=== PATIENT | female | born 1960 | race American Indian/Alaskan Native ===

== ENCOUNTER 2019-08-03 11:36 | Inpatient (IN) | payer MEDICARE ==
[2019-08-03] MEDS ORDERED: dilTIAZem 25 MG/5 ML INJ ONE (12:11)
[2019-08-03] MEDS ORDERED: SODIUM CHLORIDE 0.9% 1000 ML 1,000 ML IV ONE (12:12)
[2019-08-03] MEDS ORDERED: dilTIAZem 25 MG/5 ML INJ IV ONE (12:12)
[2019-08-03 12:18] LABS: Basophils # (Auto) 0.3 K/mm3 (0.0-0.1); Eosinophils % (Auto) 0.2 % (0.0-4.3); Hematocrit 43.6 % (30.3-42.9); Hemoglobin 14.6 gm/dl (10.1-14.3); Lymphocytes # (Auto) 2.2 K/mm3 (1.2-5.4); Lymphocytes % (Auto) 17.4 % (13.4-35.0); Mean Corpuscular HGB Conc 33 % (30-34); Mean Corpuscular Volume 93 fl (79-97); Monocytes # (Auto) 0.4 K/mm3 (0.0-0.8); Monocytes % (Auto) 3.6 % (0.0-7.3); Platelet Count 236 K/mm3 (140-440); Red Blood Count 4.71 M/mm3 (3.65-5.03); Red Cell Distribution Width 13.4 % (13.2-15.2)
--- NOTE | 2019-08-03 12:21 | Cat Scan Report ---
CT HEAD WITHOUT CONTRAST INDICATION : neuro deficits <6hrs or sx present upon awakening. TECHNIQUE: Axial imaging performed from the skull apex through the skull base without the use of con trast. All CT scans at this location are performed using CT dose reduction for ALARA by means of aut omated exposure control. COMPARISON: None FINDINGS: Parenchyma: A 3 cm left frontal lobe hypodensity with sulcal effacement. No other abnormal hypodensi ty. No hemorrhage. Ventricles: Ventricles are normal in size and appear symmetric. Soft tissues: Soft tissues including the orbits appear normal. Bones: No acute osseous abnormality. Sinuses: Sinuses and mastoid air cells are clear. IMPRESSION: Left frontal lobe hypodensity suspicious for an acute nonhemorrhagic infarct. CRITICAL RESULT: Time of Discovery (CONCESSION SUPERVISOR/CDT): 12:05 Time of Communication (CONCESSION SUPERVISOR/CDT): 12:10 Licensed Practitioner Receiving Report: Dr. Zayas in the Emergency Department Read Back Performed: Yes. Signer Name: Delgado Sigala MD Signed: 08/03/2019 12:17 PM Workstation Name: [id number]
[2019-08-03] MEDS: dilTIAZem/D5W 100 MG/100 ML BAG IV SCH (12:29)
[2019-08-03 12:35] LABS: INR 1.02 (0.87-1.13)
[2019-08-03 12:36] LABS: BUN/Creatinine Ratio 9; Blood Urea Nitrogen 7 mg/dL (7-17); Calcium 9.4 mg/dL (8.4-10.2); Hemolysis Index 14; Partial Thromboplastin Time 29.7 Sec. (24.2-36.6)
--- NOTE | 2019-08-03 13:16 | Emergency Department Report ---
ED Neuro Deficit HPI - General Chief Complaint: Neuro Symptoms/Deficit Stated Complaint: NEURO SX Time Seen by Provider: 08/03/19 12:10 Source: patient Mode of arrival: Ambulatory Limitations: No Limitations - History of Present Illness Initial Comments: C1 year old female with no prior history of stroke. Her son spoke to her at 8:00 this a.m. and noted that she was confused and not communicating appropriately. Last night the son stated that the patient was not feeling well. She was able to communicate appropriately according to the daughter at about 5 AM. Her last known well time is somewhat uncertain but at best between 5 AM and 8 AM. Patient has a history of atrial fibrillation. She takes "homeopathic medicine". She does not take a blood thinner. She does not take aspirin. She takes an unknown medicine for high blood pressure. -: unknown Location: other (a fascia) Presenting Symptoms: Present: Weak/Paralyzed One Side History of same: No Place: home Severity: moderate, severe On Anticoagulants: No Context: other (indeterminate) Associated Symptoms: other ("didn't feel well last night") - Related Data Allergies/Adverse Reactions: Allergies Allergy/AdvReac Type Severity Reaction Status Date / Time No Known Allergies Allergy Unverified 08/03/19 11:42 ED Review of Systems ROS: Stated complaint: NEURO SX Other details as noted in HPI Comment: Unobtainable due to pts medical conditions ED Past Medical Hx - Past Medical History Previous Medical History?: Yes Hx Hypertension: Yes Additional medical history: herniated disk. heart murmur. Atrial fibrillation - Surgical History Past Surgical History?: Yes - Social History Smoking Status: Never Smoker Substance Use Type: None ED Neuro Physical Exam - General Limitations: Other (globally aphasia) General appearance: alert, in no apparent distress Suspected Stroke: Yes - Head Head exam: Present: atraumatic, normocephalic - Eye Eye exam: Present: normal appearance. Absent: scleral icterus - ENT ENT exam: Present: mucous membranes moist - Neck Neck exam: Present: normal inspection. Absent: tenderness, meningismus - Respiratory Respiratory exam: Present: normal lung sounds bilaterally. Absent: respiratory distress - Cardiovascular Cardiovascular Exam: Present: tachycardia, irregular rhythm. Absent: systolic murmur, diastolic murmur, rubs, gallop - GI/Abdominal GI/Abdominal exam: Present: soft, normal bowel sounds. Absent: distended, tenderness, guarding, rebound, rigid - Extremities Exam Extremities exam: Present: normal inspection - Back Exam Back exam: Present: normal inspection - Neurological Exam Neurological exam: Present: alert, oriented X3, CN II-XII intact (as testable), other (global aphasia). Absent: motor sensory deficit (no drift) - NIHSS Assessment Interval: Baseline 1a. Level of Consciousness: alert/keenly responsive 1b. LOC Questions: answers no questions correctly 1c. LOC Commands: performs no tasks correctly 2. Best Gaze: normal 3. Visual: no visual loss (as testable) 4. Facial Palsy: normal symmetrical movement 5b. Motor Arm Right: no drift 5a. Motor Arm Left: no drift 6a. Motor Leg Left: no drift 6b. Motor Leg Right: no drift 7. Limb Ataxia: absent 8. Sensory: normal 9. Best Language: severe aphasia 10. Dysarthria: normal 11. Extinction/Inattention: no abnormality Total Score: 6 Stroke Severity: Moderate Stroke - Psychiatric Psychiatric exam: Present: normal affect, normal mood - Skin Skin exam: Present: warm, dry, intact, normal color. Absent: rash ED Course Vital Signs 08/03/19 08/03/19 08/03/19 11:56 12:18 12:29 Temperature 98.8 F Pulse Rate 123 H 121 H 107 H Respiratory 27 H Rate Blood Pressure 122/71 223/126 Blood Pressure 122/71 [Right] O2 Sat by Pulse 99 Oximetry - Reevaluation(s) Reevaluation #1: Radiologist found a subacute stroke in the left frontal lobe to 3 cm hypodensity. I spoke with the Tele-neurologist. They wanted to get an emergency angiogram of the head and neck. This was ordered. Patient was admitted by Dr. Oquendo. Patient has atrial fibrillation with rapid ventricular response. I gave her a bolus of saline because her blood pressure was somewhat low and I was concerned about the possible effects of diltiazem on the blood pressure. The patient was given a very gentle dose of diltiazem and was placed on a drip. 08/03/19 13:20 - Lab Data Result diagrams: 08/03/19 12:05 08/03/19 12:05 Lab Results 08/03/19 08/03/19 08/03/19 Range/Units 11:50 12:05 12:05 WBC 12.4 H (4.5-11.0) K/mm3 RBC 4.71 (3.65-5.03) M/mm3 Hgb 14.6 H (10.1-14.3) gm/dl Hct 43.6 H (30.3-42.9) % MCV 93 (79-97) fl MCH 31 (28-32) pg MCHC 33 (30-34) % RDW 13.4 (13.2-15.2) % Plt Count 236 (140-440) K/mm3 Lymph % (Auto) 17.4 (13.4-35.0) % [place] % (Auto) 3.6 (0.0-7.3) % Eos % (Auto) 0.2 (0.0-4.3) % Baso % (Auto) 2.0 H (0.0-1.8) % Lymph # 2.2 (1.2-5.4) K/mm3 [place] # 0.4 (0.0-0.8) K/mm3 Eos # 0.0 (0.0-0.4) K/mm3 Baso # 0.3 H (0.0-0.1) K/mm3 Seg Neutrophils % 76.8 H (40.0-70.0) % Seg Neutrophils # 9.5 H (1.8-7.7) K/mm3 PT 13.5 (12.2-14.9) Sec. INR 1.02 (0.87-1.13) APTT 29.7 (24.2-36.6) Sec. Thrombin Time 18.0 (15.1-19.6) Sec. Sodium (137-145) mmol/L Potassium (3.6-5.0) mmol/L Chloride (98-107) mmol/L Carbon Dioxide (22-30) mmol/L Anion Gap mmol/L BUN (7-17) mg/dL Creatinine (0.7-1.2) mg/dL Estimated GFR ml/min BUN/Creatinine Ratio % Glucose (65-100) mg/dL POC Glucose 85 (70-105) Calcium (8.4-10.2) mg/dL Troponin T (0.00-0.029) ng/mL 08/03/19 Range/Units 12:05 WBC (4.5-11.0) K/mm3 RBC (3.65-5.03) M/mm3 Hgb (10.1-14.3) gm/dl Hct (30.3-42.9) % MCV (79-97) fl MCH (28-32) pg MCHC (30-34) % RDW (13.2-15.2) % Plt Count (140-440) K/mm3 Lymph % (Auto) (13.4-35.0) % [place] % (Auto) (0.0-7.3) % Eos % (Auto) (0.0-4.3) % Baso % (Auto) (0.0-1.8) % Lymph # (1.2-5.4) K/mm3 [place] # (0.0-0.8) K/mm3 Eos # (0.0-0.4) K/mm3 Baso # (0.0-0.1) K/mm3 Seg Neutrophils % (40.0-70.0) % Seg Neutrophils # (1.8-7.7) K/mm3 PT (12.2-14.9) Sec. INR (0.87-1.13) APTT (24.2-36.6) Sec. Thrombin Time (15.1-19.6) Sec. Sodium 141 (137-145) mmol/L Potassium 3.6 (3.6-5.0) mmol/L Chloride 104.1 (98-107) mmol/L Carbon Dioxide 17 L (22-30) mmol/L Anion Gap 24 mmol/L BUN 7 (7-17) mg/dL Creatinine 0.8 (0.7-1.2) mg/dL Estimated GFR > 60 ml/min BUN/Creatinine Ratio 9 % Glucose 92 (65-100) mg/dL POC Glucose (70-105) Calcium 9.4 (8.4-10.2) mg/dL Troponin T < 0.010 (0.00-0.029) ng/mL - EKG Data -: EKG Interpreted by Me Rate: tachycardia (fibrillation with rapid ventricular response) - Radiology Data Radiology results: report reviewed (discussed with radiologist) Critical Care Time: Yes Critical care time in (mins) excluding proc time.: 45 Critical care attestation.: If time is entered above; I have spent that time in minutes in the direct care of this critically ill patient, excluding procedure time. ED Disposition Clinical Impression: Acute CVA (cerebrovascular accident), Atrial fibrillation with rapid ventricular response Disposition: DC-09 OP ADMIT IP TO THIS HOSP Is pt being admited?: Yes Does the pt Need Aspirin: Yes Condition: Stable Time of Disposition: 13:22
--- NOTE | 2019-08-03 13:24 | Emergency Department Report ---
ED Neuro Deficit HPI - General Chief Complaint: Neuro Symptoms/Deficit Stated Complaint: NEURO SX Time Seen by Provider: 08/03/19 12:10 Source: patient Mode of arrival: Ambulatory Limitations: Other (globally aphasia) - History of Present Illness Initial Comments: [facility] Date of Service: 08/03/2019 11:42:02 Impression: RO Acute Ischemic Stroke Comments: 59 year old female with expressive aphasia which she noticed since this morning. CT shows left frontal stroke. Stroke may be due to cardioembolic stroke. Mechanism of Stroke: Possible Thromboembolic Possible Cardioembolic Metrics: Last Known Well: 08/02/2019 21:00:00 [employer] Notification Time: 08/03/2019 11:41:10 Arrival Time: 08/03/2019 11:36:00 Stamp Time: 08/03/2019 11:42:02 Time First Login Attempt: 08/03/2019 11:47:00 Video Start Time: 08/03/2019 11:47:00 Symptoms: Expressive aphasia NIHSS Start Assessment Time: 08/03/2019 12:00:00 Patient is not a candidate for tPA. Patient was not deemed candidate for tPA thrombolytics because of Last Well Known Above 4.5 Hours. Video End Time: 08/03/2019 12:05:00 CT head was reviewed. Advanced imaging is to be reviewed by ED physician and KATE. Advanced imaging CTA head and neck obtained. Radiologist was not called back for review of advanced imaging because Symptoms not consistent with LVO ER Physician notified of the decision on thrombolytics management on 08/03/2019 12:40:00 Our recommendations are outlined below. Recommendations: Activate Stroke Protocol Admission/Order Set Stroke/Telemetry Floor Neuro Checks Bedside Swallow Eval DVT Prophylaxis IV Fluids, Normal Saline Head of Bed Below 30 Degrees Euglycemia and Avoid Hyperthermia (PRN Acetaminophen) Antiplatelet Therapy Recommended Recommended Scan: MRI Head with and Without Contrast Lipid Panel to Be Obtained, if Not Done in the Last Three Months Therapies: Physical Therapy, Occupational Therapy, Speech Therapy Assessment When Applicable Dysphaghia Screen: Swallow Evaluation, Bedside NPO Until Swallow Evaluation DVT prophylaxis: Choice of Primary Team Disposition: Follow up with Teleneurology Follow up Sign Out: Discussed with Emergency Department Provider History of Present Illness: Patient is a 59 year old Female. Patient was brought by private transportation with symptoms of Expressive aphasia 59 year old female with a history of atrial fibrillation not on anticoagulation who presents to the hospital because of expressive aphasia which she noted when she woke up this morning. On arrival patient was non-verbal except for "yes/no" appropriately. Patient did not have any other deficit. CT head was reviewed. Examination: 1A: Level of Consciousness - Alert; keenly responsive + 0 1B: Ask Month and Age - aphasic - +2 1C: Blink Eyes & Squeeze Hands - Performs Both Tasks + 0 2: Test Horizontal Extraocular Movements - Normal + 0 3: Test Visual [place] - No Visual Loss + 0 4: Test Facial Palsy (Use Grimace if Obtunded) - Normal symmetry + 0 5A: Test Left Arm Motor Drift - No Drift for 10 Seconds + 0 5B: Test Right Arm Motor Drift - No Drift for 10 Seconds + 0 6A: Test Left Leg Motor Drift - No Drift for 5 Seconds + 0 6B: Test Right Leg Motor Drift - No Drift for 5 Seconds + 0 7: Test Limb Ataxia (FNF/Heel-Marshall) - No Ataxia + 0 8: Test Sensation - Normal; No sensory loss + 0 9: Test Language/Aphasia - Severe Aphasia: Fragmentary Expression, Inference Needed, Cannot Identify Materials + 2 10: Test Dysarthria - Normal + 0 11: Test Extinction/Inattention - No abnormality + 0 NIHSS Score: 2 Patient was informed the Neurology Consult would happen via TeleHealth consult by way of interactive audio and video telecommunications and consented to receiving care in this manner. Due to the immediate potential for life-threatening deterioration due to underlying acute neurologic illness, I spent 35 minutes providing critical care. This time includes time for face to face visit via telemedicine, review of medical records, imaging studies and discussion of findings with providers, the patient and/or family. Dr Norma Patel [facility] Case [id number] Location: other (a fascia) History of same: No Place: home Severity: moderate, severe On Anticoagulants: No - Related Data Allergies/Adverse Reactions: Allergies Allergy/AdvReac Type Severity Reaction Status Date / Time NSAIDS (Non-Steroidal Allergy Unknown Verified 08/03/19 13:23 Anti-Inflamma ED Review of Systems ROS: Stated complaint: NEURO SX Other details as noted in HPI ED Past Medical Hx - Past Medical History Previous Medical History?: Yes Hx Hypertension: Yes Additional medical history: herniated disk. heart murmur. Atrial fibrillation - Surgical History Past Surgical History?: Yes - Social History Smoking Status: Never Smoker Substance Use Type: None ED Neuro Physical Exam - General Limitations: Other (globally aphasia) General appearance: alert, in no apparent distress Suspected Stroke: Yes - NIHSS Assessment Interval: Baseline 1a. Level of Consciousness: alert/keenly responsive 1b. LOC Questions: aphasic 1c. LOC Commands: performs tasks correctly 2. Best Gaze: normal 3. Visual: no visual loss 4. Facial Palsy: normal symmetrical movement 5b. Motor Arm Right: no drift 5a. Motor Arm Left: no drift 6a. Motor Leg Left: no drift 6b. Motor Leg Right: no drift 7. Limb Ataxia: absent 8. Sensory: normal 9. Best Language: severe aphasia 10. Dysarthria: normal 11. Extinction/Inattention: no abnormality Total Score: 4 Stroke Severity: Minor Stroke ED Course Vital Signs 08/03/19 08/03/19 08/03/19 11:56 12:18 12:29 Temperature 98.8 F Pulse Rate 123 H 121 H 107 H Respiratory 27 H Rate Blood Pressure 122/71 223/126 Blood Pressure 122/71 [Right] O2 Sat by Pulse 99 Oximetry - Lab Data Result diagrams: 08/03/19 12:05 08/03/19 12:05 Lab Results 08/03/19 08/03/19 08/03/19 Range/Units 11:50 12:05 12:05 WBC 12.4 H (4.5-11.0) K/mm3 RBC 4.71 (3.65-5.03) M/mm3 Hgb 14.6 H (10.1-14.3) gm/dl Hct 43.6 H (30.3-42.9) % MCV 93 (79-97) fl MCH 31 (28-32) pg MCHC 33 (30-34) % RDW 13.4 (13.2-15.2) % Plt Count 236 (140-440) K/mm3 Lymph % (Auto) 17.4 (13.4-35.0) % [place] % (Auto) 3.6 (0.0-7.3) % Eos % (Auto) 0.2 (0.0-4.3) % Baso % (Auto) 2.0 H (0.0-1.8) % Lymph # 2.2 (1.2-5.4) K/mm3 [place] # 0.4 (0.0-0.8) K/mm3 Eos # 0.0 (0.0-0.4) K/mm3 Baso # 0.3 H (0.0-0.1) K/mm3 Seg Neutrophils % 76.8 H (40.0-70.0) % Seg Neutrophils # 9.5 H (1.8-7.7) K/mm3 PT 13.5 (12.2-14.9) Sec. INR 1.02 (0.87-1.13) APTT 29.7 (24.2-36.6) Sec. Thrombin Time 18.0 (15.1-19.6) Sec. Sodium (137-145) mmol/L Potassium (3.6-5.0) mmol/L Chloride (98-107) mmol/L Carbon Dioxide (22-30) mmol/L Anion Gap mmol/L BUN (7-17) mg/dL Creatinine (0.7-1.2) mg/dL Estimated GFR ml/min BUN/Creatinine Ratio % Glucose (65-100) mg/dL POC Glucose 85 (70-105) Calcium (8.4-10.2) mg/dL Troponin T (0.00-0.029) ng/mL 08/03/19 Range/Units 12:05 WBC (4.5-11.0) K/mm3 RBC (3.65-5.03) M/mm3 Hgb (10.1-14.3) gm/dl Hct (30.3-42.9) % MCV (79-97) fl MCH (28-32) pg MCHC (30-34) % RDW (13.2-15.2) % Plt Count (140-440) K/mm3 Lymph % (Auto) (13.4-35.0) % [place] % (Auto) (0.0-7.3) % Eos % (Auto) (0.0-4.3) % Baso % (Auto) (0.0-1.8) % Lymph # (1.2-5.4) K/mm3 [place] # (0.0-0.8) K/mm3 Eos # (0.0-0.4) K/mm3 Baso # (0.0-0.1) K/mm3 Seg Neutrophils % (40.0-70.0) % Seg Neutrophils # (1.8-7.7) K/mm3 PT (12.2-14.9) Sec. INR (0.87-1.13) APTT (24.2-36.6) Sec. Thrombin Time (15.1-19.6) Sec. Sodium 141 (137-145) mmol/L Potassium 3.6 (3.6-5.0) mmol/L Chloride 104.1 (98-107) mmol/L Carbon Dioxide 17 L (22-30) mmol/L Anion Gap 24 mmol/L BUN 7 (7-17) mg/dL Creatinine 0.8 (0.7-1.2) mg/dL Estimated GFR > 60 ml/min BUN/Creatinine Ratio 9 % Glucose 92 (65-100) mg/dL POC Glucose (70-105) Calcium 9.4 (8.4-10.2) mg/dL Troponin T < 0.010 (0.00-0.029) ng/mL Critical care attestation.: If time is entered above; I have spent that time in minutes in the direct care of this critically ill patient, excluding procedure time. ED Disposition Clinical Impression: Stroke Disposition: DC-09 OP ADMIT IP TO THIS HOSP Is pt being admited?: Yes Condition: Stable
[2019-08-03] MEDS ORDERED: ASPIRIN 325 MG TAB PO ONE (13:26)
--- NOTE | 2019-08-03 13:37 | History and Physical Report ---
History of Present Illness Chief complaint: She is confused, and is talking strange History of present illness: 59 YO Female with HTN, LDD, Atrial Fib not currently taking Therapeutic Anticoagulation presents to ED for evaluation. PT is confused with dysarthria at time of my evaluation and is unable to provide detailed history. Pt history provided by son who is at bedside during exam and interview. As per son, the p atient was in her usual state of health around bedtime at 2130hrs hrs. Pt son reports talking to the patient on the telephone around 0800hrs and the patient was confused and "Not making any sense". Pt was subsequently transported to [facility] via private vehicle. Pt seen and evaluated in ED and found to have neurologic deficit. A code stroke was called. Teleneurology consulted. Pt deemed not a candidate for TPA. Pt was also found to have Atrial Fib with RVR and was initiated on Cardizem drip in ED. Pt also found to have Acidosis, and Hypertensive Urgency. Pt admitted to IMCU for medical stabilization due to high risk of decompensation. Cardiology team consulted in ED, Neurology team consulted. Advanced Care planning conducted in ED. Pt family at bedside and acknowledge understanding and agreement with care plan. No prior admission for review. All medication listed at time of admission was reconciled. P Past History Past Medical History: hypertension Past Surgical History: Other (Lumbar surgery) Social history: single Family history: hypertension Medications and Allergies Allergies Allergy/AdvReac Type Severity Reaction Status Date / Time NSAIDS (Non-Steroidal Allergy Unknown Verified 08/03/19 13:23 Anti-Inflamma Home Medications Medication Instructions Recorded Confirmed Last Taken Type Metoprolol Succinate 100 mg PO BID 08/03/19 08/03/19 Unknown History Active Meds: Active Medications Diltiazem HCl (Cardizem/D5w 100mg/100ml) 100 mg in 100 mls @ 5 mls/hr IV TITR NAIN; Protocol Last Admin: 08/03/19 12:29 Dose: 5 mg/hr, 5 mls/hr Documented by: Review of Systems ROS unobtainable: due to mental status Exam - Constitutional Vitals: Temp Pulse Resp BP Pulse Ox 98.8 F 112 H 31 H 241/127 99 08/03/19 11:56 08/03/19 13:15 08/03/19 13:15 08/03/19 13:15 08/03/19 13:15 General appearance: Present: mild distress - EENT Eyes: Present: PERRL ENT: hearing intact, clear oral mucosa - Neck Neck: Present: supple, normal ROM - Respiratory Respiratory effort: normal Respiratory: bilateral: CTA - Cardiovascular Rhythm: other (tachycardia) Heart Sounds: Present: S1 & S2. Absent: rub, click - Extremities Extremities: pulses symmetrical, No edema Peripheral Pulses: within normal limits - Abdominal General gastrointestinal: Present: soft, non-tender, non-distended, normal bowel sounds Female genitourinary: Present: normal - Integumentary Integumentary: Present: clear, warm, dry - Musculoskeletal Musculoskeletal: generalized weakness - Psychiatric Psychiatric: no appropriate mood/affect, no intact judgment & insight, no memory intact - Neurologic Neurologic: no CNII-XII intact, focal deficits, moves all extremities, no gait normal Results - Labs CBC & Chem 7: 08/03/19 12:05 08/03/19 12:05 Labs: Abnormal lab results 08/03/19 08/03/19 Range/Units 12:05 12:05 WBC 12.4 H (4.5-11.0) K/mm3 Hgb 14.6 H (10.1-14.3) gm/dl Hct 43.6 H (30.3-42.9) % Baso % (Auto) 2.0 H (0.0-1.8) % Baso # 0.3 H (0.0-0.1) K/mm3 Seg Neutrophils % 76.8 H (40.0-70.0) % Seg Neutrophils # 9.5 H (1.8-7.7) K/mm3 Carbon Dioxide 17 L (22-30) mmol/L Assessment and Plan - Patient Problems (1) CVA (cerebral vascular accident) Current Visit: Yes Status: Acute Qualifiers: Laterality of affected vessel: unspecified Plan to address problem: CVA Protocol: Neurology consulted, CT Head, neuro check, lipid panel, PT/OT/Speech therapy, antiplatelet therapy, carotid doppler, echo to evaluate for thrombus, (2) Atrial fibrillation Current Visit: Yes Status: Acute Qualifiers: Atrial fibrillation type: unspecified Qualified Code(s): I48.91 - Unspecified atrial fibrillation Plan to address problem: Cardizem drip, transition to oral cardizem with sustained rate below 100, remote telemetry, cardiology consulted. (3) Hypertensive urgency, malignant Current Visit: Yes Status: Acute Plan to address problem: Monitor bp q shift, hydralazine prn, permissive hypertension overnight. (4) Acidosis Current Visit: Yes Status: Acute Plan to address problem: IVF resuscitation therapy, bmp, repeat bmp in am. (5) DVT prophylaxis Current Visit: Yes Status: Acute Plan to address problem: SCD to BLE while in bed, supportive care.
[2019-08-03] MEDS ORDERED: MAGNESIUM HYDROXIDE (MOM) ORAL LIQD UDC PO PRN (13:42)
[2019-08-03] MEDS ORDERED: ONDANSETRON 4 MG/2 ML INJ IV PRN (13:42)
[2019-08-03] MEDS ORDERED: ACETAMINOPHEN 325 MG TAB PO PRN (13:42)
[2019-08-03] MEDS ORDERED: METOCLOPRAMIDE 10 MG TAB PO PRN (13:42)
[2019-08-03] MEDS ORDERED: PROMETHAZINE 25 MG RECT SUPP PR PRN (13:42)
[2019-08-03] MEDS: hydrALAZINE 20 MG/1 ML INJ IV PRN ×2 (14:02→21:16)
--- NOTE | 2019-08-03 14:56 | Consultation ---
History of Present Illness Consult date: 08/03/19 Reason for Consult: Stroke Chief complaint: Difficulty with word finding History of present illness: Patient is a 59 y/o woman w/ a h/o HTN, A-fib. She presented this morning with difficulty speaking, as she had difficulty finding words over the phone when talking to her son. Her last known well time was about 4pm yesterday. She had not talked to anyone since then. Patient's speech has improved since onset, however she still has some difficulty findings words. Patient was not on any anti-coagulation. Past History Past Medical History: other (HTN, A-fib) Social history: lives with family Family history: no significant family history Medications and Allergies Allergies Allergy/AdvReac Type Severity Reaction Status Date / Time NSAIDS (Non-Steroidal Allergy Unknown Verified 08/03/19 13:23 Anti-Inflamma Active Meds: Active Medications Acetaminophen (Tylenol) 650 mg PO Q4H PRN PRN Reason: Pain, Mild (1-3) Aspirin (Aspirin) 325 mg PO QDAY NAIN Atorvastatin Calcium (Lipitor) 40 mg PO QHS NAIN Bisacodyl (Dulcolax) 10 mg OR QDAY PRN PRN Reason: Constipation Hydralazine HCl (Apresoline) 10 mg IV Q6HR PRN PRN Reason: Hypertension Last Admin: 08/03/19 14:02 Dose: 10 mg Documented by: Diltiazem HCl (Cardizem/D5w 100mg/100ml) 100 mg in 100 mls @ 5 mls/hr IV TITR NAIN; Protocol Last Titration: 08/03/19 14:45 Dose: 15 mg/hr, 15 mls/hr Documented by: Magnesium Hydroxide (Milk Of Magnesia) 30 ml PO Q4H PRN PRN Reason: Constipation Metoclopramide HCl (Reglan) 10 mg PO Q6H PRN PRN Reason: Nausea And Vomiting Ondansetron HCl (Zofran) 4 mg IV Q8H PRN PRN Reason: Nausea And Vomiting Promethazine HCl (Phenergan) 25 mg OR Q6H PRN PRN Reason: Nausea And Vomiting Sodium Chloride (Sodium Chloride Flush Syringe 10 Ml) 10 ml IV PRN PRN PRN Reason: LINE FLUSH Review of Systems All systems: negative Neurological: change in speech Physical Examination - Vital Signs Vital Signs: Vital Signs Temp Pulse Resp BP Pulse Ox 98.8 F 123 H 27 H 122/71 99 08/03/19 11:56 08/03/19 11:56 08/03/19 11:56 08/03/19 11:56 08/03/19 11:56 - Physical Exam Narrative exam: Patient is awake, alert, oriented x4, follows complex commands. No notable dysarthria. Noted to have aphasia. PERRL, EOMI, VFF, b/l intact to LT, tongue midline, no facial weakness. 5/5 in RUE/LUE, 3/5 in LLE/RLE limited due to pain. b/l intact to LT. B/l intact to FTN and HTS. 2+ reflexes throughout. - Constitutional General appearance: comfortable - EENT EENT: Present: ATNC, PERRL, mucous membranes moist, hearing intact, vision intact - Respiratory Respiratory: Present: lungs clear, normal breath sounds - Cardiovascular Cardiovascular: Present: regular rate, normal S1, normal S2 Extremities: Present: no clubbing, cyanosis, no inflammation - Gastrointestinal Gastrointestinal: Present: normoactive bowel sounds, soft, non-tender - Integumentary Integumentary: Present: normal - Musculoskeletal Musculoskeletal: Present: no fluid collection, no pain - Psychiatric Psychiatric: Present: mood/affect appropriate - Level of Consciousness 1a. Level of Consciousness: alert/keenly responsive - LOC Questions 1b. LOC Questions: answers both correctly - LOC Command 1c. LOC Commands: performs tasks correctly - Best Gaze 2. Best Gaze: normal - Visual 3. Visual: no visual loss - Facial Palsy 4. Facial Palsy: normal symmetrical movement - Motor Arm 5a. Motor Arm Left: no drift 5b. Motor Arm Right: no drift - Motor Leg 6a. Motor Leg Left: no drift 6b. Motor Leg Right: no drift - Limb Ataxia 7. Limb Ataxia: absent - Sensory 8. Sensory: normal - Best Language 9. Best Language: mild/moderate aphasia - Dysarthria 10. Dysarthria: normal - Extinction and Inattention 11. Extinction/Inattention: no abnormality - Scoring Total Score: 1 Stroke Severity: Minor Stroke Results - Laboratory Findings CBC and BMP: 08/03/19 12:05 08/03/19 12:05 Abnormal Lab Findings: Abnormal Labs 08/03/19 08/03/19 12:05 12:05 WBC 12.4 H Hgb 14.6 H Hct 43.6 H Baso % (Auto) 2.0 H Baso # 0.3 H Seg Neutrophils % 76.8 H Seg Neutrophils # 9.5 H Carbon Dioxide 17 L Assessment and Plan Patient is a 59 y/o woman w/ a h/o HTN, A-fib, who p/w difficulty with word-finding. According to the patient's clinical findings, it is likely that she has had a stroke. Plan: 1. Stroke: - CT head showed left frontal infarct - MRI pending - CTA head/neck pending. - Echo pending - Cont. ASA - Cont. statin - Patient will likely require anticoagulation for A-fib, however will wait for MRI brain prior to deciding on timing of anticoagulation, to avoid hemorrhagic conversion. - PT/OT/ST - DVT Ppx: recommend lovenox 2. Hypertension: - Recommend BP target of <220/120 to allow for permissive HTN. - Will continue to monitor patient. Thank you for allowing me to take part in the care of this patient. Pranay Morton MD Neurology
--- NOTE | 2019-08-03 16:11 | Vascular Lab Report ---
"DUPLEX DOPPLER ULTRASOUND CAROTID, BILATERAL INDICATION: stroke. FINDINGS: RIGHT CAROTID: Mild plaque Right CCA velocity: 78 cm/sec. Right ICA peak systolic velocity: 92 cm/sec. ICA/CCA PSV Ratio: 1.2. Right Vertebral Artery: Antegrade flow. LEFT CAROTID: Mild plaque Left CCA velocity: 82 cm/sec. Left ICA peak systolic velocity: 74 cm/sec. ICA/CCA PSV Ratio: 0.9. Left Vertebral Artery: Antegrade flow. IMPRESSION: 1. Right Internal Carotid Artery: Less than 50% diameter stenosis. 2. Left Internal Carotid Artery: Less than 50% diameter stenosis. Velocity criteria are extrapolated from diameter data as defined by the Society of Radiologists in Ul trasound Consensus Conference, Radiology 2003; 229;340-346. Degree of Stenosis (%) || ICA PSV (cm/sec) || Plaque estimate (%) || ICA/CCA PSV Ratio Normal <125 None <2.0 <50 <125 <50 <2.0 50-69 125-230 50 2.0-4.0 70 but less than 100 >230 50 >4.0 Near occlusion High, low, or none visible variable Total occlusion None visible; no lumen N/A Signer Name: Case Castrejon MD Signed: 08/03/2019 4:07 PM Workstation Name: [id number]"
--- NOTE | 2019-08-03 16:56 | Cat Scan Report ---
CTA NECK WITH CONTRAST HISTORY: Stroke COMPARISON: None. TECHNIQUE: Routine CTA of the neck was performed. 3-D/MIP reformats were postprocessed. Percentage s tenosis is determined by direct quantitative measurements of diseased internal carotid artery diamete r compared with normal distal internal carotid artery reference segments or by criteria similar to NA SCET where applicable.All CT scans at this location are performed using CT dose reduction for ALARA b y means of automated exposure control CONTRAST: 100 ml of Omnipaque 350 FINDINGS: Aortic arch: No significant abnormality. Cervical vertebral arteries: No significant abnormality. Common carotid arteries: No significant abnormality. Carotid bifurcations: Nonstenotic atheromatous plaque is seen along the medial wall of proximal right internal carotid artery. Left carotid bifurcation is normal. Cervical internal carotid arteries: No significant abnormality. Additional findings: None. IMPRESSION: Nonstenotic calcified atheromatous plaque along the medial wall of proximal right internal carotid ar mio Normal left carotid bifurcation Signer Name: Manjeet Meza MD Signed: 08/03/2019 4:51 PM Workstation Name: [email or web address]
--- NOTE | 2019-08-03 17:00 | Cat Scan Report ---
CTA HEAD WITH CONTRAST HISTORY: Stroke COMPARISON: None. TECHNIQUE: Routine non-contrast CT Head, CTA of the head and post-contrast CT Head are performed. 3-D /MIP reformats postprocessed. All CT scans at this location are performed using CT dose reduction for ALARA by means of automated exposure control CONTRAST: 100 ml of Omnipaque 350 FINDINGS: CTA Head: Intracranial vertebral arteries: No significant abnormality. Basilar artery: No significant abnormality. Posterior cerebral arteries: No significant abnormality. Intracranial internal carotid arteries: No significant abnormality. Anterior cerebral arteries: No significant abnormality. Middle cerebral arteries: No significant abnormality. Dural venous sinuses:Not optimally opacified. No significant abnormality. Additional findings: None. IMPRESSION: 1. No significant abnormality. Signer Name: Manjeet Meza MD Signed: 08/03/2019 4:56 PM Workstation Name: [id number]
[2019-08-03] MEDS ORDERED: dilTIAZem 30 MG TAB ONE (17:16)
[2019-08-03] MEDS: dilTIAZem 30 MG TAB PO SCH ×2 (17:20→18:31)
[2019-08-04] MEDS: dilTIAZem 30 MG TAB PO SCH ×3 (00:26→11:52)
[2019-08-04] MEDS: dilTIAZem/D5W 100 MG/100 ML BAG IV SCH (01:35)
[2019-08-04 06:51] LABS: Chol/HDL Ratio 2.49 %
[2019-08-04] MEDS: ASPIRIN 325 MG TAB PO SCH (10:28)
[2019-08-04] MEDS ORDERED: ENOXAPARIN 80 MG/0.8 ML INJ SUB-Q SCH (11:00)
[2019-08-04] MEDS ORDERED: ENOXAPARIN 100 MG/1 ML INJ SUB-Q SCH (11:00)
[2019-08-04] MEDS: METOPROLOL TARTRATE 100 MG TAB PO SCH ×3 (12:04→22:10)
--- NOTE | 2019-08-04 13:05 | Progress Note ---
Assessment and Plan Patient is a 59 y/o woman w/ a h/o HTN, A-fib, who p/w difficulty with word- finding. According to the patient's clinical findings, it is likely that she has had a stroke. Plan: 1. Stroke: - CT head showed left frontal infarct - MRI brain revealed small areas of embolic-appearing infarcts in left cortex, and larger infarct in left frontal region with hemorrhagic conversion. - CTA head/neck: no significant stenosis. - Echo pending. - Cont. ASA - Cont. statin - Patient will require anticoagulation for A-fib, however will wait until , to decrease risk of further increase of hemorrhagic conversion. Recommend Eliquis to be started at that time. - PT/OT/ST - DVT Ppx: recommend lovenox 2. Hypertension: - Recommend BP target of normotension. - Will continue to monitor patient. Thank you for allowing me to take part in the care of this patient. Pranay Morton MD Neurology Subjective Date of service: 08/04/19 Principal diagnosis: Stroke Interval history: No acute events overnight. Objective - Exam Narrative Exam: Patient is awake, alert, oriented x4, follows complex commands. No notable dysarthria. Noted to have aphasia. PERRL, EOMI, VFF, b/l intact to LT, tongue midline, no facial weakness. 5/5 in RUE/LUE, 5/5 in LLE/RLE. B/l intact to LT. B/l intact to FTN and HTS. 2+ reflexes throughout. - Vital Sign Vital Signs - 12hr 08/04/19 08/04/19 08/04/19 01:00 01:11 01:21 Temperature Pulse Rate 123 H 115 H 129 H Pulse Rate [ From Monitor] Respiratory 26 H 30 H 32 H Rate Blood Pressure 141/80 141/80 141/80 O2 Sat by Pulse 97 96 96 Oximetry 08/04/19 08/04/19 08/04/19 01:31 01:41 01:50 Temperature Pulse Rate 112 H 116 H 102 H Pulse Rate [ 120 H From Monitor] Respiratory 30 H 31 H 24 Rate Blood Pressure 141/80 141/80 127/70 O2 Sat by Pulse 96 97 95 Oximetry 08/04/19 08/04/19 08/04/19 02:00 02:10 02:20 Temperature Pulse Rate 102 H 98 H 93 H Pulse Rate [ From Monitor] Respiratory 30 H 21 27 H Rate Blood Pressure 125/65 124/73 115/61 O2 Sat by Pulse 97 97 Oximetry 08/04/19 08/04/19 08/04/19 02:30 02:40 02:50 Temperature Pulse Rate 89 89 99 H Pulse Rate [ From Monitor] Respiratory 26 H 17 25 H Rate Blood Pressure 116/69 120/63 137/69 O2 Sat by Pulse 94 94 Oximetry 08/04/19 08/04/19 08/04/19 03:00 03:10 03:20 Temperature Pulse Rate 86 89 87 Pulse Rate [ 88 From Monitor] Respiratory 30 H 23 24 Rate Blood Pressure 117/64 120/68 131/65 O2 Sat by Pulse 96 96 95 Oximetry 08/04/19 08/04/19 08/04/19 03:30 03:39 03:40 Temperature 98.6 F Pulse Rate 86 87 Pulse Rate [ From Monitor] Respiratory 24 25 H Rate Blood Pressure 135/58 130/76 O2 Sat by Pulse 95 96 Oximetry 08/04/19 08/04/19 08/04/19 03:50 04:00 04:10 Temperature Pulse Rate 84 83 80 Pulse Rate [ From Monitor] Respiratory 31 H 28 H 29 H Rate Blood Pressure 144/66 142/62 119/66 O2 Sat by Pulse 97 97 97 Oximetry 08/04/19 08/04/19 08/04/19 04:20 04:30 04:40 Temperature Pulse Rate 79 87 74 Pulse Rate [ From Monitor] Respiratory 26 H 24 27 H Rate Blood Pressure 128/65 127/72 137/68 O2 Sat by Pulse 96 94 94 Oximetry 08/04/19 08/04/19 08/04/19 04:50 05:00 05:10 Temperature Pulse Rate 75 70 65 Pulse Rate [ From Monitor] Respiratory 29 H 26 H 24 Rate Blood Pressure 119/68 133/62 130/66 O2 Sat by Pulse 96 96 96 Oximetry 08/04/19 08/04/19 08/04/19 05:20 05:31 05:40 Temperature Pulse Rate 72 71 72 Pulse Rate [ From Monitor] Respiratory 20 25 H 26 H Rate Blood Pressure 116/57 112/61 121/69 O2 Sat by Pulse 97 98 95 Oximetry 08/04/19 08/04/19 08/04/19 05:48 05:50 06:00 Temperature Pulse Rate 71 81 73 Pulse Rate [ From Monitor] Respiratory 22 25 H Rate Blood Pressure 119/62 128/63 128/60 O2 Sat by Pulse 99 97 Oximetry 08/04/19 08/04/19 08/04/19 06:10 06:20 06:25 Temperature Pulse Rate 66 91 H Pulse Rate [ From Monitor] Respiratory 28 H 26 H 25 H Rate Blood Pressure 117/74 129/81 O2 Sat by Pulse 96 97 99 Oximetry 08/04/19 08/04/19 08/04/19 06:30 06:40 06:50 Temperature Pulse Rate 66 72 64 Pulse Rate [ From Monitor] Respiratory 20 27 H 22 Rate Blood Pressure 124/78 129/77 132/64 O2 Sat by Pulse 98 96 97 Oximetry 08/04/19 08/04/19 08/04/19 07:00 07:11 07:21 Temperature Pulse Rate 72 60 55 L Pulse Rate [ From Monitor] Respiratory 29 H 28 H 25 H Rate Blood Pressure 132/63 132/63 128/63 O2 Sat by Pulse 96 98 96 Oximetry 08/04/19 08/04/19 08/04/19 07:30 07:41 07:51 Temperature Pulse Rate 68 58 L 56 L Pulse Rate [ From Monitor] Respiratory 24 23 26 H Rate Blood Pressure 115/73 115/73 112/64 O2 Sat by Pulse 96 96 98 Oximetry 08/04/19 08/04/19 08/04/19 08:00 08:11 08:21 Temperature 98 F Pulse Rate 57 L 60 58 L Pulse Rate [ From Monitor] Respiratory 26 H 16 25 H Rate Blood Pressure 122/65 122/65 121/64 O2 Sat by Pulse 94 99 97 Oximetry 08/04/19 08/04/19 08/04/19 08:22 08:30 08:41 Temperature Pulse Rate 59 L 53 L Pulse Rate [ 55 L From Monitor] Respiratory 24 20 24 Rate Blood Pressure 116/78 116/78 O2 Sat by Pulse 97 94 96 Oximetry 08/04/19 08/04/19 08/04/19 08:43 08:51 09:00 Temperature Pulse Rate 77 72 Pulse Rate [ From Monitor] Respiratory 18 22 Rate Blood Pressure 143/64 144/68 O2 Sat by Pulse 96 97 97 Oximetry 08/04/19 08/04/19 08/04/19 09:11 09:21 09:30 Temperature Pulse Rate 76 75 71 Pulse Rate [ From Monitor] Respiratory 14 13 20 Rate Blood Pressure 144/68 144/68 138/70 O2 Sat by Pulse 96 97 96 Oximetry 08/04/19 08/04/19 08/04/19 09:41 09:51 10:00 Temperature Pulse Rate 70 69 77 Pulse Rate [ From Monitor] Respiratory 30 H 27 H 19 Rate Blood Pressure 138/70 138/70 158/88 O2 Sat by Pulse 97 98 97 Oximetry 08/04/19 08/04/19 08/04/19 10:11 10:21 10:31 Temperature Pulse Rate 69 84 79 Pulse Rate [ From Monitor] Respiratory 27 H 22 18 Rate Blood Pressure 158/88 158/88 173/89 O2 Sat by Pulse 99 97 97 Oximetry 08/04/19 08/04/19 08/04/19 10:40 10:50 11:00 Temperature Pulse Rate 79 82 85 Pulse Rate [ From Monitor] Respiratory 24 17 25 H Rate Blood Pressure 173/89 173/89 O2 Sat by Pulse 97 96 97 Oximetry 08/04/19 08/04/19 08/04/19 11:10 11:20 11:30 Temperature Pulse Rate 89 81 80 Pulse Rate [ From Monitor] Respiratory 21 16 24 Rate Blood Pressure 173/89 173/89 181/86 O2 Sat by Pulse 96 98 97 Oximetry 08/04/19 08/04/19 08/04/19 11:40 11:50 11:52 Temperature Pulse Rate 71 77 87 Pulse Rate [ From Monitor] Respiratory 18 23 Rate Blood Pressure 181/86 181/86 181/86 O2 Sat by Pulse 99 99 Oximetry 08/04/19 08/04/19 12:00 12:04 Temperature 98.2 F Pulse Rate 85 Pulse Rate [ From Monitor] Respiratory Rate Blood Pressure 150/65 O2 Sat by Pulse Oximetry - General Apperance Constitutional: comfortable - EENT EENT: ATNC, PERRL, mucous membranes moist, hearing intact, vision intact - Respiratory Respiratory: lungs clear, normal breath sounds - Cardiovascular Cardiovascular: regular rate, normal S1, normal S2 Extremities: no clubbing, cyanosis, no inflammation - Gastrointestinal Gastrointestinal: normoactive bowel sounds, soft, non-tender - Integumentary Integumentary: normal - Musculoskeletal Musculoskeletal: no fluid collection, no pain - Psychiatric Psychiatric: mood/affect appropriate - Laboratory Findings CBC and BMP: 08/03/19 12:05 08/03/19 12:05 Abnormal Lab Findings: Abnormal Labs 08/03/19 08/03/19 08/04/19 12:05 12:05 05:27 WBC 12.4 H Hgb 14.6 H Hct 43.6 H Baso % (Auto) 2.0 H Baso # 0.3 H Seg Neutrophils % 76.8 H Seg Neutrophils # 9.5 H Carbon Dioxide 17 L HDL Cholesterol 63 H
--- NOTE | 2019-08-04 13:38 | Progress Note ---
Assessment and Plan /Acute CVA (cerebral vascular accident) Placed on CVA Protocol: Neurology consulted, - + infract on CT Head, - cont neuro check, lipid panel, PT/OT/Speech therapy, antiplatelet therapy, carotid doppler, echo to evaluate for thrombus, - MRI result pending / Atrial fibrillation with RVR s/p Cardizem drip, will place on home dose BB, remote telemetry, cardiology consulted. AC per neuro recommendation / Hypertensive urgency, malignant Monitor bp q shift, hydralazine prn, s/p permissive hypertension overnight. will place norvasc and metoprolol / DVT prophylaxis SCD to BLE while in bed, supportive care. Subjective Date of service: 08/04/19 Principal diagnosis: Stroke Interval history: patient seen and examined on atrial fib on tele denies chest pain, off cardizem drip plan to transfer to tele plan updated with pt's Son and with RN at bedside Objective - Constitutional Vitals: Vital Signs - 12hr 08/04/19 08/04/19 08/04/19 01:41 01:50 02:00 Temperature Pulse Rate 116 H 102 H 102 H Pulse Rate [ 120 H From Monitor] Respiratory 31 H 24 30 H Rate Blood Pressure 141/80 127/70 125/65 O2 Sat by Pulse 97 95 97 Oximetry 08/04/19 08/04/19 08/04/19 02:10 02:20 02:30 Temperature Pulse Rate 98 H 93 H 89 Pulse Rate [ From Monitor] Respiratory 21 27 H 26 H Rate Blood Pressure 124/73 115/61 116/69 O2 Sat by Pulse 97 Oximetry 08/04/19 08/04/19 08/04/19 02:40 02:50 03:00 Temperature Pulse Rate 89 99 H 86 Pulse Rate [ From Monitor] Respiratory 17 25 H 30 H Rate Blood Pressure 120/63 137/69 117/64 O2 Sat by Pulse 94 94 96 Oximetry 08/04/19 08/04/19 08/04/19 03:10 03:20 03:30 Temperature Pulse Rate 89 87 86 Pulse Rate [ 88 From Monitor] Respiratory 23 24 24 Rate Blood Pressure 120/68 131/65 135/58 O2 Sat by Pulse 96 95 95 Oximetry 08/04/19 08/04/19 08/04/19 03:39 03:40 03:50 Temperature 98.6 F Pulse Rate 87 84 Pulse Rate [ From Monitor] Respiratory 25 H 31 H Rate Blood Pressure 130/76 144/66 O2 Sat by Pulse 96 97 Oximetry 08/04/19 08/04/19 08/04/19 04:00 04:10 04:20 Temperature Pulse Rate 83 80 79 Pulse Rate [ From Monitor] Respiratory 28 H 29 H 26 H Rate Blood Pressure 142/62 119/66 128/65 O2 Sat by Pulse 97 97 96 Oximetry 08/04/19 08/04/19 08/04/19 04:30 04:40 04:50 Temperature Pulse Rate 87 74 75 Pulse Rate [ From Monitor] Respiratory 24 27 H 29 H Rate Blood Pressure 127/72 137/68 119/68 O2 Sat by Pulse 94 94 96 Oximetry 08/04/19 08/04/19 08/04/19 05:00 05:10 05:20 Temperature Pulse Rate 70 65 72 Pulse Rate [ From Monitor] Respiratory 26 H 24 20 Rate Blood Pressure 133/62 130/66 116/57 O2 Sat by Pulse 96 96 97 Oximetry 08/04/19 08/04/19 08/04/19 05:31 05:40 05:48 Temperature Pulse Rate 71 72 71 Pulse Rate [ From Monitor] Respiratory 25 H 26 H Rate Blood Pressure 112/61 121/69 119/62 O2 Sat by Pulse 98 95 Oximetry 08/04/19 08/04/19 08/04/19 05:50 06:00 06:10 Temperature Pulse Rate 81 73 66 Pulse Rate [ From Monitor] Respiratory 22 25 H 28 H Rate Blood Pressure 128/63 128/60 117/74 O2 Sat by Pulse 99 97 96 Oximetry 08/04/19 08/04/19 08/04/19 06:20 06:25 06:30 Temperature Pulse Rate 91 H 66 Pulse Rate [ From Monitor] Respiratory 26 H 25 H 20 Rate Blood Pressure 129/81 124/78 O2 Sat by Pulse 97 99 98 Oximetry 08/04/19 08/04/19 08/04/19 06:40 06:50 07:00 Temperature Pulse Rate 72 64 72 Pulse Rate [ From Monitor] Respiratory 27 H 22 29 H Rate Blood Pressure 129/77 132/64 132/63 O2 Sat by Pulse 96 97 96 Oximetry 08/04/19 08/04/19 08/04/19 07:11 07:21 07:30 Temperature Pulse Rate 60 55 L 68 Pulse Rate [ From Monitor] Respiratory 28 H 25 H 24 Rate Blood Pressure 132/63 128/63 115/73 O2 Sat by Pulse 98 96 96 Oximetry 08/04/19 08/04/19 08/04/19 07:41 07:51 08:00 Temperature 98 F Pulse Rate 58 L 56 L 57 L Pulse Rate [ From Monitor] Respiratory 23 26 H 26 H Rate Blood Pressure 115/73 112/64 122/65 O2 Sat by Pulse 96 98 94 Oximetry 08/04/19 08/04/19 08/04/19 08:11 08:21 08:22 Temperature Pulse Rate 60 58 L Pulse Rate [ 55 L From Monitor] Respiratory 16 25 H 24 Rate Blood Pressure 122/65 121/64 O2 Sat by Pulse 99 97 97 Oximetry 08/04/19 08/04/19 08/04/19 08:30 08:41 08:43 Temperature Pulse Rate 59 L 53 L Pulse Rate [ From Monitor] Respiratory 20 24 Rate Blood Pressure 116/78 116/78 O2 Sat by Pulse 94 96 96 Oximetry 08/04/19 08/04/19 08/04/19 08:51 09:00 09:11 Temperature Pulse Rate 77 72 76 Pulse Rate [ From Monitor] Respiratory 18 22 14 Rate Blood Pressure 143/64 144/68 144/68 O2 Sat by Pulse 97 97 96 Oximetry 08/04/19 08/04/19 08/04/19 09:21 09:30 09:41 Temperature Pulse Rate 75 71 70 Pulse Rate [ From Monitor] Respiratory 13 20 30 H Rate Blood Pressure 144/68 138/70 138/70 O2 Sat by Pulse 97 96 97 Oximetry 08/04/19 08/04/19 08/04/19 09:51 10:00 10:11 Temperature Pulse Rate 69 77 69 Pulse Rate [ From Monitor] Respiratory 27 H 19 27 H Rate Blood Pressure 138/70 158/88 158/88 O2 Sat by Pulse 98 97 99 Oximetry 08/04/19 08/04/19 08/04/19 10:21 10:31 10:40 Temperature Pulse Rate 84 79 79 Pulse Rate [ From Monitor] Respiratory 22 18 24 Rate Blood Pressure 158/88 173/89 173/89 O2 Sat by Pulse 97 97 97 Oximetry 08/04/19 08/04/19 08/04/19 10:50 11:00 11:10 Temperature Pulse Rate 82 85 89 Pulse Rate [ From Monitor] Respiratory 17 25 H 21 Rate Blood Pressure 173/89 173/89 O2 Sat by Pulse 96 97 96 Oximetry 08/04/19 08/04/19 08/04/19 11:20 11:30 11:40 Temperature Pulse Rate 81 80 71 Pulse Rate [ From Monitor] Respiratory 16 24 18 Rate Blood Pressure 173/89 181/86 181/86 O2 Sat by Pulse 98 97 99 Oximetry 08/04/19 08/04/19 08/04/19 11:50 11:52 12:00 Temperature 98.2 F Pulse Rate 77 87 Pulse Rate [ From Monitor] Respiratory 23 Rate Blood Pressure 181/86 181/86 O2 Sat by Pulse 99 Oximetry 08/04/19 08/04/19 12:04 13:37 Temperature Pulse Rate 85 85 Pulse Rate [ From Monitor] Respiratory Rate Blood Pressure 150/65 150/65 O2 Sat by Pulse Oximetry General appearance: Present: no acute distress, well-nourished - EENT Eyes: PERRL, EOM intact ENT: hearing intact, clear oral mucosa Ears: bilateral: normal - Neck Neck: supple, normal ROM - Respiratory Respiratory effort: normal Respiratory: bilateral: CTA - Cardiovascular Rhythm: irregularly irregular Heart Sounds: Present: S1 & S2. Absent: gallop, rub Extremities: pulses intact, No edema, normal color, Full ROM - Gastrointestinal General gastrointestinal: Present: soft, non-tender, non-distended, normal bowel sounds - Integumentary Integumentary: clear, warm, dry - Musculoskeletal Musculoskeletal: 1, strength equal bilaterally - Neurologic Neurologic: moves all extremities - Psychiatric Psychiatric: memory intact, appropriate mood/affect, intact judgment & insight - Labs CBC & Chem 7: 08/05/19 13:27 08/05/19 13:27 Labs: Abnormal lab results 08/04/19 Range/Units 05:27 HDL Cholesterol 63 H (40-59) mg/dL
--- NOTE | 2019-08-04 13:49 | Magnetic Resonance Report ---
MRI BRAIN 08/04/2019 INDICATION / CLINICAL INFORMATION: stroke. Speech disturbance. TECHNIQUE: Multiplanar, multisequence MR images of the brain were obtained. COMPARISON: CT brain 08/03/2019 FINDINGS: BRAIN / INTRACRANIAL CONTENTS: Unenhanced MR images of the brain were obtained and compared to the CT scan from 08/03/2019. MRI confirms the presence of acute ischemic injury in the left frontal lobe, o rosalio an area of approximately 3.5 cm. There may be a component of left insular cortex involvement is w ell. There is restricted diffusion, as well as central areas of patchy magnetic susceptibility, consi stent with acute ischemic injury with hemorrhagic component. The overall size is similar to that seen on the CT scan, although better visualized by MRI. Ventricles and sulci are otherwise normal in size and shape. There is no other evidence of blood prod ucts. There are no abnormal extra-axial fluid collections. EXTRACRANIAL: Unremarkable CRANIOCERVICAL JUNCTION: No significant abnormality. VASCULAR FLOW-VOIDS: No significant abnormality. IMPRESSION: Acute left frontal cortical infarct with some hemorrhagic component as described above. Signer Name: Lucian Ceballos MD Signed: 08/04/2019 1:45 PM Workstation Name: [id number]
--- NOTE | 2019-08-04 13:59 | Consultation ---
History of Present Illness Consult date: 08/04/19 Consult reason: atrial fibrillation History of present illness: This is a 59-year old woman that gives a history of hypertension, atrial fibrillation which is followed by [facility]. Patient was previously recommended oral anticoagulation but she declined. There is no history of coronary artery disease and she had no recent cardiac workup. Patient is now admitted with acute CVA. Her presenting ECG is atrial fibrillation with a rapid ventricular rate. She was treated with intravenous Diltiazem in the emergency department. She remains in atrial fibrillation but her rate is now controlled. Patient denies chest pain, unusual shortness of breath and palpitations. A cardiac consultation has been requested for Afib management. Past History Past Medical History: hypertension Past Surgical History: Other (Lumbar surgery) Social history: single Family history: hypertension Medications and Allergies Allergies Allergy/AdvReac Type Severity Reaction Status Date / Time NSAIDS (Non-Steroidal Allergy Unknown Verified 08/03/19 13:23 Anti-Inflamma Home Medications Medication Instructions Recorded Confirmed Last Taken Type Metoprolol Succinate 100 mg PO BID 08/03/19 08/03/19 Unknown History Active Meds: Active Medications Acetaminophen (Tylenol) 650 mg PO Q4H PRN PRN Reason: Pain, Mild (1-3) Aspirin (Aspirin) 325 mg PO QDAY [facility] Last Admin: 08/04/19 10:28 Dose: 325 mg Documented by: Atorvastatin Calcium (Lipitor) 40 mg PO QHS [facility] Last Admin: 08/03/19 21:15 Dose: Not Given Documented by: Bisacodyl (Dulcolax) 10 mg NE QDAY PRN PRN Reason: Constipation Diltiazem HCl (Cardizem) 30 mg PO Q6HR [facility] Last Admin: 08/04/19 11:52 Dose: 30 mg Documented by: Enoxaparin Sodium (Enoxaparin) 40 mg SUB-Q QDAY@2200 NAIN Hydralazine HCl (Apresoline) 10 mg IV Q6HR PRN PRN Reason: Hypertension Last Admin: 08/03/19 21:16 Dose: 10 mg Documented by: Diltiazem HCl (Cardizem/D5w 100mg/100ml) 100 mg in 100 mls @ 5 mls/hr IV TITR NAIN; Protocol Last Titration: 08/04/19 08:00 Dose: 0 mg/hr, 0 mls/hr Documented by: Losartan Potassium (Cozaar) 50 mg PO QDAY [facility] Magnesium Hydroxide (Milk Of Magnesia) 30 ml PO Q4H PRN PRN Reason: Constipation Metoclopramide HCl (Reglan) 10 mg PO Q6H PRN PRN Reason: Nausea And Vomiting Metoprolol Tartrate (Metoprolol) 100 mg PO BID NAIN Last Admin: 08/04/19 13:37 Dose: 100 mg Documented by: Ondansetron HCl (Zofran) 4 mg IV Q8H PRN PRN Reason: Nausea And Vomiting Promethazine HCl (Phenergan) 25 mg NE Q6H PRN PRN Reason: Nausea And Vomiting Sodium Chloride (Sodium Chloride Flush Syringe 10 Ml) 10 ml IV PRN PRN PRN Reason: LINE FLUSH Last Admin: 08/03/19 21:17 Dose: 10 ml Documented by: Physical Examination Vital Signs Temp Pulse Resp BP Pulse Ox 98.8 F 123 H 27 H 122/71 99 08/03/19 11:56 08/03/19 11:56 08/03/19 11:56 08/03/19 11:56 08/03/19 11:56 General appearance: no acute distress HEENT: Positive: PERRL Neck: Positive: trachea midline Cardiac: Positive: irregularly irregular Lungs: Positive: Decreased Breath Sounds Neuro: Positive: Weakness Results 08/03/19 12:05 08/03/19 12:05 Lipids 08/04/19 Range/Units 05:27 Triglycerides 116 (2-149) mg/dL Cholesterol 157 (50-199) mg/dL HDL Cholesterol 63 H (40-59) mg/dL Cholesterol/HDL Ratio 2.49 % Assessment and Plan - Patient Problems (1) Atrial fibrillation Current Visit: Yes Status: Acute Qualifiers: Qualified Code(s): I48.91 - Unspecified atrial fibrillation (2) CVA (cerebral vascular accident) Current Visit: Yes Status: Acute
[2019-08-04] MEDS ORDERED: LOSARTAN 50 MG TAB PO SCH (14:00)
[2019-08-04] MEDS: amLODIPine 10 MG TAB PO SCH (17:35)
[2019-08-04] MEDS: hydrALAZINE 20 MG/1 ML INJ IV PRN (17:50)
[2019-08-05] MEDS: hydrALAZINE 20 MG/1 ML INJ IV PRN ×2 (07:41→20:37)
[2019-08-05] MEDS: amLODIPine 10 MG TAB PO SCH (09:46)
[2019-08-05] MEDS: ASPIRIN 325 MG TAB PO SCH (09:46)
[2019-08-05] MEDS: METOPROLOL TARTRATE 100 MG TAB PO SCH ×2 (09:46→22:17)
[2019-08-05] MEDS ORDERED: LOSARTAN 50 MG TAB PO SCH (10:00)
--- NOTE | 2019-08-05 10:46 | Progress Note ---
<ARGENISZULEIKA - Last Filed: 08/05/19 10:46> Assessment and Plan Atrial fibrillation, rate control on metoprolol initiate oral anticoagulation therapy on 08/16 per neurology follows with [place] [facility] Acute CVA Hypertension Recommendations: Continue abby therapy for atrial fibrillation rate control Optimal hypertension management. Subjective Date of service: 08/05/19 Principal diagnosis: Stroke Interval history: Patient is resting in bed comfortably. She has no complaints. Afib with a well controlled ventricular rate on telemetry. Objective Vital Signs Temp Pulse Pulse Resp BP Pulse Ox 08/05/19 10:00 77 08/05/19 08:23 84 22 98 08/05/19 07:47 100 08/05/19 07:38 98.0 F 18 202/110 08/05/19 03:28 98.5 F 90 16 177/89 96 08/04/19 23:19 98.5 F 90 14 165/79 100 08/04/19 22:10 84 179/106 08/04/19 22:00 88 25 H 99 08/04/19 20:29 88 08/04/19 20:20 98.2 F 93 H 16 179/106 96 08/04/19 17:50 192/100 08/04/19 17:35 85 192/100 08/04/19 17:30 85 150/65 08/04/19 13:37 85 150/65 08/04/19 13:06 98.4 F 18 196/100 08/04/19 12:04 85 150/65 08/04/19 12:00 98.2 F 08/04/19 11:52 87 181/86 08/04/19 11:50 77 23 181/86 99 08/04/19 11:40 71 18 181/86 99 08/04/19 11:30 80 24 181/86 97 08/04/19 11:20 81 16 173/89 98 08/04/19 11:10 89 21 173/89 96 08/04/19 11:00 85 25 H 97 08/04/19 10:50 82 17 173/89 96 - Physical Examination General: No Apparent Distress HEENT: Positive: PERRL Neck: Positive: trachea midline Cardiac: Positive: irregularly irregular Lungs: Positive: Normal Breath Sounds Neuro: Positive: Grossly Intact Extremities: Absent: edema <MAYRA GLASER - Last Filed: 08/11/19 23:37> Assessment and Plan I have seen and evaluated the patient and agree with the assessment and plan.
--- NOTE | 2019-08-05 11:39 | Progress Note ---
Assessment and Plan Patient is a 59 y/o woman w/ a h/o HTN, A-fib, who p/w difficulty with word- finding. According to the patient's clinical findings, it is likely that she has had a stroke. Plan: 1. Stroke: - CT head showed left frontal infarct - MRI brain revealed small areas of embolic-appearing infarcts in left cortex, and larger infarct in left frontal region with hemorrhagic conversion. - CTA head/neck: no significant stenosis. - Echo: EF 60-65%, LA mildly dilated, bubble study negative. - Cont. ASA - Cont. statin - Patient will require anticoagulation for A-fib, however will wait until 08/16/19, to decrease risk of further increase of hemorrhagic conversion. Recommend Eliquis to be started at that time. Continue Aspirin 81mg daily in the interim, which is to be stopped once anti-coagulation is started. - PT/OT/ST - DVT Ppx: recommend lovenox 2. Hypertension: - Recommend BP target of normotension. - Will sign off as neurologic workup is complete, and treatment plan is in place. Please call with any questions. Thank you for allowing me to take part in the care of this patient. Pranay Morton MD Neurology Subjective Date of service: 08/05/19 Principal diagnosis: Stroke Interval history: No acute events overnight. Objective - Exam Narrative Exam: Patient is awake, alert, oriented x4, follows complex commands. No notable dysarthria. Noted to have aphasia. PERRL, EOMI, VFF, b/l intact to LT, tongue midline, no facial weakness. 5/5 in RUE/LUE, 5/5 in LLE/RLE. B/l intact to LT. B/l intact to FTN and HTS. 2+ reflexes throughout. - Vital Sign Vital Signs - 12hr 08/05/19 08/05/19 08/05/19 03:28 07:38 07:47 Temperature 98.5 F 98.0 F Pulse Rate 90 Pulse Rate [ From Monitor] Respiratory 16 18 Rate Blood Pressure 177/89 202/110 O2 Sat by Pulse 96 100 Oximetry 08/05/19 08/05/19 08:23 10:00 Temperature Pulse Rate 77 Pulse Rate [ 84 From Monitor] Respiratory 22 Rate Blood Pressure O2 Sat by Pulse 98 Oximetry - General Apperance Constitutional: comfortable - EENT EENT: ATNC, PERRL, mucous membranes moist, hearing intact, vision intact - Respiratory Respiratory: lungs clear, normal breath sounds - Cardiovascular Cardiovascular: regular rate, normal S1, normal S2 Extremities: no clubbing, cyanosis, no inflammation - Gastrointestinal Gastrointestinal: normoactive bowel sounds, soft, non-tender - Integumentary Integumentary: normal - Musculoskeletal Musculoskeletal: no fluid collection, no pain - Psychiatric Psychiatric: mood/affect appropriate - Laboratory Findings CBC and BMP: 08/03/19 12:05 08/03/19 12:05 Abnormal Lab Findings: Abnormal Labs 08/03/19 08/03/19 08/04/19 12:05 12:05 05:27 WBC 12.4 H Hgb 14.6 H Hct 43.6 H Baso % (Auto) 2.0 H Baso # 0.3 H Seg Neutrophils % 76.8 H Seg Neutrophils # 9.5 H Carbon Dioxide 17 L HDL Cholesterol 63 H
[2019-08-05 13:55] LABS: Hematocrit 43.4 % (30.3-42.9); Hemoglobin 14.5 gm/dl (10.1-14.3); Mean Corpuscular HGB Conc 33 % (30-34); Mean Corpuscular Volume 93 fl (79-97); Platelet Count 241 K/mm3 (140-440); Red Blood Count 4.66 M/mm3 (3.65-5.03); Red Cell Distribution Width 13.9 % (13.2-15.2)
[2019-08-05 14:15] LABS: BUN/Creatinine Ratio 13; Blood Urea Nitrogen 9 mg/dL (7-17); Calcium 9.6 mg/dL (8.4-10.2); Hemolysis Index 19
--- NOTE | 2019-08-05 15:55 | Progress Note ---
Assessment and Plan /Acute left frontal lobe CVA (cerebral vascular accident) Placed on CVA Protocol: Neurology consulted, - + infract on CT Head and MRI brain - cont neuro check, lipid panel, PT/OT/Speech therapy, antiplatelet therapy, carotid doppler, echo to evaluate for thrombus, / Atrial fibrillation with RVR s/p Cardizem drip, will place on home dose BB, remote telemetry, cardiology consulted. AC per neuro recommendation / Hypertensive urgency, malignant Monitor bp q shift, hydralazine prn, s/p permissive hypertension overnight. On norvasc and metoprolol, will also add cozaar / DVT prophylaxis SCD to BLE while in bed, supportive care. Subjective Date of service: 08/05/19 Principal diagnosis: Stroke Interval history: patient seen and examined on atrial fib on tele denies chest pain, BP remained elevated plan updated with pt's Son and with RN at bedside Objective - Constitutional Vitals: Vital Signs - 12hr 08/05/19 08/05/19 08/05/19 07:38 07:47 08:23 Temperature 98.0 F Pulse Rate Pulse Rate [ 84 From Monitor] Respiratory 18 22 Rate Blood Pressure 202/110 O2 Sat by Pulse 100 98 Oximetry 08/05/19 08/05/19 10:00 12:50 Temperature 98.2 F Pulse Rate 77 Pulse Rate [ From Monitor] Respiratory 18 Rate Blood Pressure 188/113 O2 Sat by Pulse Oximetry General appearance: Present: no acute distress, well-nourished - EENT Eyes: PERRL, EOM intact ENT: hearing intact, clear oral mucosa Ears: bilateral: normal - Neck Neck: supple, normal ROM - Respiratory Respiratory effort: normal Respiratory: bilateral: CTA - Cardiovascular Rhythm: regular Heart Sounds: Present: S1 & S2. Absent: gallop, rub Extremities: pulses intact, No edema, normal color, Full ROM - Gastrointestinal General gastrointestinal: Present: soft, non-tender, non-distended, normal bowel sounds - Genitourinary Female genitourinary: normal - Integumentary Integumentary: clear, warm, dry - Musculoskeletal Musculoskeletal: 1, strength equal bilaterally - Neurologic Neurologic: moves all extremities - Psychiatric Psychiatric: memory intact, appropriate mood/affect, intact judgment & insight - Labs CBC & Chem 7: 08/05/19 13:27 08/05/19 13:27 Labs: Abnormal lab results 08/05/19 Range/Units 13:27 Hgb 14.5 H (10.1-14.3) gm/dl Hct 43.4 H (30.3-42.9) %
[2019-08-05] MEDS: LOSARTAN 50 MG TAB PO SCH (17:05)
[2019-08-05] MEDS: ENOXAPARIN 40 MG/0.4 ML INJ SUB-Q SCH (22:17)
[2019-08-06] MEDS: LOSARTAN 50 MG TAB PO SCH (10:29)
[2019-08-06] MEDS: METOPROLOL TARTRATE 100 MG TAB PO SCH ×2 (10:30→21:50)
[2019-08-06] MEDS: amLODIPine 10 MG TAB PO SCH (10:30)
[2019-08-06] MEDS: ASPIRIN 325 MG TAB PO SCH (10:31)
--- NOTE | 2019-08-06 14:51 | Progress Note ---
Assessment and Plan Atrial fibrillation, rate control on metoprolol initiate oral anticoagulation therapy on 08/16 per neurology follows with [place] [facility] Acute CVA Hypertension Subjective Date of service: 08/06/19 Principal diagnosis: Stroke Interval history: BP still not optimal, currently 198/118. Patient has no complaints. Afib with a well control ventricular rate on telemetry. Objective Vital Signs Temp Pulse Pulse Pulse Pulse Pulse Resp 08/06/19 10:30 88 08/06/19 10:29 88 08/06/19 10:00 118 H 118 H 118 H 19 08/06/19 07:57 98.5 F 81 18 08/06/19 06:13 98.6 F 71 20 08/06/19 04:59 76 08/05/19 23:07 98.4 F 82 14 08/05/19 22:17 113 H 08/05/19 21:27 88 08/05/19 20:37 109 H 08/05/19 19:28 97.8 F 90 16 08/05/19 19:11 81 08/05/19 17:14 98.1 F 18 BP Pulse Ox 08/06/19 10:30 195/118 08/06/19 10:29 195/118 08/06/19 10:00 99 08/06/19 07:57 143/92 97 08/06/19 06:13 147/81 98 08/06/19 04:59 08/05/19 23:07 175/88 96 08/05/19 22:17 198/91 99 08/05/19 21:27 99 08/05/19 20:37 217/117 08/05/19 19:28 217/117 98 08/05/19 19:11 08/05/19 17:14 184/113 - Physical Examination General: No Apparent Distress HEENT: Positive: PERRL Neck: Positive: trachea midline Cardiac: Positive: irregularly irregular Lungs: Positive: Normal Breath Sounds Neuro: Positive: Grossly Intact Extremities: Absent: edema
--- NOTE | 2019-08-06 17:27 | Progress Note ---
Assessment and Plan /Acute left frontal lobe CVA (cerebral vascular accident) Placed on CVA Protocol: Neurology consulted, - + infract on CT Head and MRI brain - cont neuro check, lipid panel, PT/OT/Speech therapy, antiplatelet therapy, carotid doppler, echo to evaluate for thrombus, / Atrial fibrillation with RVR s/p Cardizem drip, will place on home dose BB, remote telemetry, cardiology consulted. AC per neuro recommendation / Hypertensive urgency, malignant Monitor bp q shift, hydralazine prn, On norvasc, metoprolol and cozaar - still uncontrolled will stop norvasc - add cardizem and increase cozaar dose / DVT prophylaxis SCD to BLE while in bed, supportive care. Disposition: possible d/c tomorrow if SBP <160 Subjective Date of service: 08/06/19 Principal diagnosis: Stroke Interval history: patient seen and examined on atrial fib on tele denies chest pain, BP remained elevated at 190s plan updated with pt's family and with RN at bedside Objective - Constitutional Vitals: Vital Signs - 12hr 08/06/19 08/06/19 08/06/19 06:13 07:57 10:00 Temperature 98.6 F 98.5 F Pulse Rate 71 81 84 Pulse Rate [ 118 H Apical] Pulse Rate [ 118 H Left Radial] Pulse Rate [ 118 H Right Radial] Respiratory 20 18 19 Rate Blood Pressure 147/81 143/92 O2 Sat by Pulse 98 97 99 Oximetry 08/06/19 08/06/19 08/06/19 10:29 10:30 12:00 Temperature Pulse Rate 88 88 79 Pulse Rate [ Apical] Pulse Rate [ Left Radial] Pulse Rate [ Right Radial] Respiratory Rate Blood Pressure 195/118 195/118 O2 Sat by Pulse Oximetry General appearance: Present: no acute distress, well-nourished - EENT Eyes: PERRL, EOM intact ENT: hearing intact, clear oral mucosa Ears: bilateral: normal - Neck Neck: supple, normal ROM - Respiratory Respiratory effort: normal Respiratory: bilateral: CTA - Cardiovascular Heart Sounds: Present: S1 & S2. Absent: gallop, rub Extremities: pulses intact, No edema, normal color, Full ROM - Gastrointestinal General gastrointestinal: Present: soft, non-tender, non-distended, normal bowel sounds - Genitourinary Female genitourinary: normal - Integumentary Integumentary: clear, warm, dry - Musculoskeletal Musculoskeletal: 1, strength equal bilaterally - Neurologic Neurologic: moves all extremities - Psychiatric Psychiatric: memory intact, appropriate mood/affect, intact judgment & insight - Labs CBC & Chem 7: 08/05/19 13:27 08/05/19 13:27
[2019-08-06] MEDS ORDERED: dilTIAZem 30 MG TAB PO SCH (18:00)
[2019-08-06] MEDS: ENOXAPARIN 40 MG/0.4 ML INJ SUB-Q SCH (21:49)
[2019-08-06] MEDS: DOXAZOSIN 1 MG TAB PO SCH (21:49)
[2019-08-07] MEDS ORDERED: SODIUM CHLORIDE 0.9% 250ML 250 ML IV ONE (00:31)
--- NOTE | 2019-08-07 09:12 | Progress Note ---
Assessment and Plan Atrial fibrillation, rate control on metoprolol initiate oral anticoagulation therapy on 08/16 per neurology follows with [place] [facility]ology Acute CVA Hypertension Echocardiogram showed normal left ventricle systolic function with ejection fraction 60-65%, negative PFO contrast study. Recommend: Continue rate controlling agents for atrial fibrillation that persists. Patient advised to follow up with her primary radiotelegraphist within 3-5 days of discharge. We will sign off. Subjective Date of service: 08/07/19 Principal diagnosis: Stroke Interval history: No cardiac events overnight. Afib with a well controlled ventricular rate on telemetry. Objective Vital Signs Temp Pulse Pulse Pulse Pulse Resp BP 08/07/19 08:06 98.1 F 72 18 144/83 08/07/19 05:59 60 08/07/19 04:36 98.2 F 68 16 119/66 08/07/19 00:20 60 17 08/07/19 00:15 56 L 17 08/06/19 23:45 98.2 F 62 16 88/41 08/06/19 21:52 08/06/19 21:50 89 148/66 08/06/19 21:49 89 148/66 08/06/19 20:26 98.3 F 89 16 148/66 08/06/19 20:02 78 08/06/19 18:21 83 198/94 08/06/19 18:20 87 198/94 08/06/19 17:00 62 08/06/19 16:04 97.8 F 67 18 146/86 08/06/19 14:47 78 08/06/19 12:00 79 08/06/19 11:47 98.2 F 81 18 187/111 08/06/19 10:30 88 195/118 08/06/19 10:29 88 195/118 08/06/19 10:28 79 08/06/19 10:00 84 118 H 118 H 118 H 19 BP Pulse Ox 08/07/19 08:06 97 08/07/19 05:59 08/07/19 04:36 98 08/07/19 00:20 98 08/07/19 00:15 88/48 96 08/06/19 23:45 96 08/06/19 21:52 97 08/06/19 21:50 08/06/19 21:49 08/06/19 20:26 99 08/06/19 20:02 08/06/19 18:21 98 08/06/19 18:20 08/06/19 17:00 08/06/19 16:04 98 08/06/19 14:47 100 08/06/19 12:00 08/06/19 11:47 98 08/06/19 10:30 08/06/19 10:29 08/06/19 10:28 99 08/06/19 10:00 99 - Physical Examination General: No Apparent Distress HEENT: Positive: PERRL Neck: Positive: trachea midline Cardiac: Positive: irregularly irregular Lungs: Positive: Normal Breath Sounds Neuro: Positive: Grossly Intact Extremities: Absent: edema
--- NOTE | 2019-08-07 09:32 | Discharge Summary ---
Providers - Providers Date of Admission: 08/03/19 13:42 Date of discharge: 08/07/19 Attending physician: PARISH ESQUIVEL 08/03/19 13:42 Consult to Case Management [CONS] Routine Services Needed at Discharge: Other Notified:: Camryn Azevedo Phone number called:: in person Was contact made?: Yes If yes, spoke with:: Camryn Azevedo Time called:: 08:49 Additional Physician Instructions: D/C planning Occupational Therapy Evaluate and Treat [CONS] Routine Comment: Reason For Exam: Neuro deficits Physical Therapy Evaluation and Treat [CONS] Routine Comment: Reason For Exam: Neuro deficits Speech Therapy Evaluation and Treat [CONS] Routine Reason For Exam: swallow eval 08/03/19 13:47 Consult to Cardiology [CONS] Routine Consulting Provider: CHALO MONTANO Reason For Exam: Atrial Fib 08/03/19 13:51 Consult to Physician [CONS] Routine Comment: Consulting Provider: PRINCE MURILLO Physician Instructions: Reason For Exam: cva Primary care physician: [facility] [employer] Hospitalization Condition: Stable Hospital course: Discharge diagnosis: /Acute left frontal lobe CVA (cerebral vascular accident) Placed on CVA Protocol: Neurology consulted, - + infract on CT Head and MRI brain - cont neuro check, ordered for lipid panel, PT/OT/Speech therapy, antiplatelet therapy, carotid doppler, echo to evaluate for thrombus, / Atrial fibrillation with RVR s/p Cardizem drip, rate controlled on home dose BB, AC per neuro recommendation to start from 08/16/19 will cont aspirin for now, 2d with prederved EF / Hypertensive urgency, malignant cont metoprolol, nifedipine, cardura and cozaar / DVT prophylaxis SCD to BLE while in bed, supportive care. Disposition: DC-01 TO HOME OR SELFCARE Time spent for discharge: 34 minutes Core Measure Documentation - Palliative Care Palliative Care/ Comfort Measures: Not Applicable - Core Measures Any of the following diagnoses?: none Exam - Constitutional Vitals: Temp Pulse Resp BP Pulse Ox 98.1 F 72 18 144/83 97 08/07/19 08:06 08/07/19 08:06 08/07/19 08:06 08/07/19 08:06 08/07/19 08:06 General appearance: Present: no acute distress, well-nourished - EENT Eyes: Present: PERRL ENT: hearing intact, clear oral mucosa - Neck Neck: Present: supple, normal ROM - Respiratory Respiratory effort: normal Respiratory: bilateral: CTA - Cardiovascular Heart Sounds: Present: S1 & S2. Absent: rub, click - Extremities Extremities: pulses symmetrical, No edema Peripheral Pulses: within normal limits - Abdominal General gastrointestinal: Present: soft, non-tender, non-distended, normal bowel sounds - Integumentary Integumentary: Present: clear, warm, dry - Musculoskeletal Musculoskeletal: gait normal, strength equal bilaterally - Psychiatric Psychiatric: appropriate mood/affect, intact judgment & insight - Neurologic Neurologic: CNII-XII intact, moves all extremities Plan Activity: advance as tolerated Weight Bearing Status: Weight Bear as Tolerated Diet: low fat, low salt Special Instructions: record daily BP diary Additional Instructions: Please f/u with cardiology by 08/16/19 to start on anticoagulation for atrial fib Follow up with: PRIMARY CAREMD [Primary Care Provider] - 7 Days CHALO MONTANO MD [Staff Physician] - 7 Days Prescriptions: Doxazosin [Cardura] 2 mg PO QHS #30 tablet AtorvaSTATin [Lipitor] 40 mg PO QHS #30 tablet Losartan [Cozaar] 100 mg PO QDAY #30 tablet Aspirin EC [Halfprin EC] 81 mg PO QDAY #30 tablet. Metoprolol Succinate 100 mg PO BID #60 NIFEdipine XL [Procardia Xl] 30 mg PO QDAY #30 tablet
[2019-08-07] MEDS: NIFEdipine XL 30 MG TAB PO SCH (10:08)
[2019-08-07] MEDS: LOSARTAN 50 MG TAB PO SCH (10:08)
[2019-08-07] MEDS: ASPIRIN 325 MG TAB PO SCH (10:08)
[2019-08-07] MEDS: METOPROLOL TARTRATE 100 MG TAB PO SCH ×2 (10:09→22:02)
--- NOTE | 2019-08-07 11:37 | Progress Note ---
Assessment and Plan Patient is a 59 y/o woman w/ a h/o HTN, A-fib, who p/w difficulty with word- finding. According to the patient's clinical findings, it is likely that she has had a stroke. Plan: 1. Stroke: - CT head showed left frontal infarct - MRI brain revealed small areas of embolic-appearing infarcts in left cortex, and larger infarct in left frontal region with hemorrhagic conversion. - CTA head/neck: no significant stenosis. - Echo: EF 60-65%, LA mildly dilated, bubble study negative. - Cont. ASA - Cont. statin - Patient will require anticoagulation for A-fib, however will wait until 08/16/19, to decrease risk of further increase of hemorrhagic conversion. Recommend Eliquis to be started at that time. Continue Aspirin 81mg daily in the interim, which is to be stopped once anti-coagulation is started. - PT/OT/ST - DVT Ppx: recommend lovenox - As patient c/o headache this morning, will check repeat CT head to rule out increase in hemorrhagic transformation. 2. Hypertension: - Recommend BP target of normotension. - Will sign off as I am not covering neurology service over the weekend. Please consult neurologist covering service over the weekend for further neurologic monitoring and management. Thank you for allowing me to take part in the care of this patient. Pranay Morton MD Neurology Subjective Date of service: 08/07/19 Principal diagnosis: Stroke Interval history: Patient complaining of headache this morning. Objective - Exam Narrative Exam: Patient is awake, alert, oriented x4, follows complex commands. No notable dysarthria. Noted to have aphasia. PERRL, EOMI, VFF, b/l intact to LT, tongue midline, no facial weakness. 5/5 in RUE/LUE, 5/5 in LLE/RLE. B/l intact to LT. B/l intact to FTN and HTS. 2+ reflexes throughout. - Vital Sign Vital Signs - 12hr 08/06/19 08/07/19 08/07/19 23:45 00:15 00:20 Temperature 98.2 F Pulse Rate 62 56 L 60 Respiratory 16 17 17 Rate Blood Pressure 88/41 Blood Pressure 88/48 [Right] O2 Sat by Pulse 96 96 98 Oximetry 08/07/19 08/07/19 08/07/19 04:36 05:59 08:06 Temperature 98.2 F 98.1 F Pulse Rate 68 60 72 Respiratory 16 18 Rate Blood Pressure 119/66 144/83 Blood Pressure [Right] O2 Sat by Pulse 98 97 Oximetry 08/07/19 08/07/19 10:08 10:09 Temperature Pulse Rate 94 H 94 H Respiratory Rate Blood Pressure 183/85 183/85 Blood Pressure [Right] O2 Sat by Pulse Oximetry - General Apperance Constitutional: comfortable - EENT EENT: ATNC, PERRL, mucous membranes moist, hearing intact, vision intact - Respiratory Respiratory: lungs clear, normal breath sounds - Cardiovascular Cardiovascular: regular rate, normal S1, normal S2 Extremities: no clubbing, cyanosis, no inflammation - Gastrointestinal Gastrointestinal: normoactive bowel sounds, soft, non-tender - Integumentary Integumentary: normal - Musculoskeletal Musculoskeletal: no fluid collection, no pain - Psychiatric Psychiatric: mood/affect appropriate - Laboratory Findings CBC and BMP: 08/05/19 13:27 08/05/19 13:27 Abnormal Lab Findings: Abnormal Labs 08/03/19 08/03/19 08/04/19 12:05 12:05 05:27 WBC 12.4 H Hgb 14.6 H Hct 43.6 H Baso % (Auto) 2.0 H Baso # 0.3 H Seg Neutrophils % 76.8 H Seg Neutrophils # 9.5 H Carbon Dioxide 17 L HDL Cholesterol 63 H 08/05/19 13:27 WBC Hgb 14.5 H Hct 43.4 H Baso % (Auto) Baso # Seg Neutrophils % Seg Neutrophils # Carbon Dioxide HDL Cholesterol
--- NOTE | 2019-08-07 12:48 | Cat Scan Report ---
CT BRAIN: 08/07/2019 INDICATION / CLINICAL INFORMATION: stroke, headache. Follow-up COMPARISON: MRI brain 08/04/2019. CT brain 08/03/2019. FINDINGS: BRAIN/INTRACRANIAL STRUCTURES: Unenhanced CT images of the brain were obtained and compared to the pr ior exams. As seen on the MRI, the area of hypoattenuation in the left frontal lobe has some evidence of petechial hemorrhagic change. The overall size of the lesion is unchanged. There is no evidence o f bryson hematoma formation. No new lesions are identified. Underlying normal age-related atrophic changes are again noted. EXTRACRANIAL STRUCTURES: Unremarkable. IMPRESSION: Evolving left frontal cortical infarct with hemorrhagic component. No evidence of acute superimposed abnormality. All CT scans at this location are performed using dose reduction to ALARA by means of automated expos ure control. Signer Name: Lucian Ceballos MD Signed: 08/07/2019 12:43 PM Workstation Name: [id number]
[2019-08-07] MEDS ORDERED: ASPIRIN 325 MG TAB PO SCH (13:35)
--- NOTE | 2019-08-07 16:51 | Progress Note ---
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 Placed on CVA Protocol: Neurology consulted, + infract on CT Head and MRI brain repeat CT head showed hemorrhagic evolution but likely unchange from MRI - cont neuro check, antiplatelet and statin therapy, - < 50% stenosis in carotid doppler, echo with preserved EF w/o thrombus, / Atrial fibrillation with RVR s/p Cardizem drip, rate controlled on home dose BB, AC per neuro recommendation to start from 08/16/19 will cont aspirin for now, 2d with preserved EF / Hypertensive urgency, malignant cont metoprolol, nifedipine, cardura and cozaar / DVT prophylaxis SCD to BLE while in bed, supportive care. Disposition: home tomorrow if BP stable Brief history: 59-year-old woman with a history of hypertension and paroxysmal atrial fibrillation refused standard medical therapy including anticoagulants as outpt presents now with expressive aphasia, evidence of acute CVA. EKG showed atrial fibrillation. Blood pressure in the emergency room was as high as 223 systolic. Subjective Date of service: 08/07/19 Principal diagnosis: Stroke Interval history: patient seen and examined denies chest pain, BP remained elevated at 180s c/o recurrent left sided facial numbness and headache this am plan updated with pt's family and with RN at bedside Objective - Exam Narrative Exam: General appearance: Present: no acute distress, well-nourished - EENT Eyes: PERRL, EOM intact ENT: hearing intact, clear oral mucosa Ears: bilateral: normal - Neck Neck: supple, normal ROM - Respiratory Respiratory effort: normal Respiratory: bilateral: CTA - Cardiovascular Heart Sounds: Present: S1 & S2. Absent: gallop, rub Extremities: pulses intact, No edema, normal color, Full ROM - Gastrointestinal General gastrointestinal: Present: soft, non-tender, non-distended, normal bowel sounds - Genitourinary Female genitourinary: normal - Integumentary Integumentary: clear, warm, dry - Musculoskeletal Musculoskeletal: 1, strength equal bilaterally - Neurologic Neurologic: moves all extremities - Psychiatric Psychiatric: memory intact, appropriate mood/affect, intact judgment & insight - Constitutional Vitals: Vital Signs - 12hr 08/07/19 08/07/19 08/07/19 05:59 08:06 10:00 Temperature 98.1 F Pulse Rate 60 72 79 Pulse Rate [ 68 Apical] Pulse Rate [ 68 Left Radial] Pulse Rate [ 68 Right Radial] Respiratory 18 19 Rate Blood Pressure 144/83 O2 Sat by Pulse 97 99 Oximetry 08/07/19 08/07/19 08/07/19 10:07 10:08 10:09 Temperature Pulse Rate 89 94 H 94 H Pulse Rate [ Apical] Pulse Rate [ Left Radial] Pulse Rate [ Right Radial] Respiratory Rate Blood Pressure 183/85 183/85 183/85 O2 Sat by Pulse 95 Oximetry 08/07/19 08/07/19 12:08 12:44 Temperature 97.8 F 98.2 F Pulse Rate 78 80 Pulse Rate [ Apical] Pulse Rate [ Left Radial] Pulse Rate [ Right Radial] Respiratory 18 18 Rate Blood Pressure 147/83 102/66 O2 Sat by Pulse 96 100 Oximetry - Labs CBC & Chem 7: 08/05/19 13:27 08/05/19 13:27
[2019-08-07] MEDS ORDERED: NIFEdipine XL 30 MG TAB PO SCH (22:00)
[2019-08-07] MEDS: ENOXAPARIN 40 MG/0.4 ML INJ SUB-Q SCH (22:02)
[2019-08-07] MEDS: DOXAZOSIN 1 MG TAB PO SCH (22:02)
[2019-08-08] MEDS: METOPROLOL TARTRATE 100 MG TAB PO SCH ×2 (09:57→21:52)
[2019-08-08] MEDS: NIFEdipine XL 30 MG TAB PO SCH (09:57)
[2019-08-08] MEDS: LOSARTAN 50 MG TAB PO SCH (09:57)
[2019-08-08] MEDS: ASPIRIN 81 MG TAB CHEW PO SCH (09:58)
--- NOTE | 2019-08-08 15:50 | Progress Note ---
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 Placed on CVA Protocol: Neurology consulted, + infract on CT Head and MRI brain repeat CT head showed hemorrhagic evolution but likely unchange from MRI cont neuro check, antiplatelet and statin therapy, < 50% stenosis in carotid doppler, echo with preserved EF w/o thrombus, Neurology recommended to start anticoagulation with Eliquis from 08/16/2019 -- Atrial fibrillation with RVR s/p Cardizem drip, rate controlled on home dose BB, AC per neuro recommendation to start from 08/16/19 will cont aspirin for now, 2d with preserved EF -- Hypertensive urgency, malignant cont metoprolol, nifedipine, cardura and cozaar --DVT prophylaxis SCD to BLE while in bed, supportive care. Continue current management Possible discharge in 1 to 2 days if stable History Interval history: Patient seen and examined medical records reviewed Patient feels slightly better, denies any headache or dizziness Alert awake oriented x3, Vital signs reviewed Patient with hemorrhagic CVA, A. fib on aspirin Neurology recommended to start Eliquis from 08/16/2019 Hospitalist Physical - Constitutional Vitals: Temp Pulse Resp BP Pulse Ox 97.6 F 78 18 142/75 97 08/08/19 07:28 08/08/19 09:57 08/08/19 07:28 08/08/19 09:57 08/08/19 07:28 General appearance: Present: no acute distress, well-nourished - EENT Eyes: Present: PERRL, EOM intact - Neck Neck: Present: supple, normal ROM - Respiratory Respiratory effort: normal Respiratory: bilateral: diminished, negative: rales, rhonchi, wheezing - Cardiovascular Rhythm: regular Heart Sounds: Present: S1 & S2 - Extremities Extremities: no ischemia, No edema - Abdominal General gastrointestinal: soft, non-tender, non-distended, normal bowel sounds - Integumentary Integumentary: Present: clear, warm - Psychiatric Psychiatric: appropriate mood/affect, cooperative - Neurologic Neurologic: CNII-XII intact, moves all extremities Results - Labs CBC & Chem 7: 08/05/19 13:27 08/05/19 13:27 Labs: Laboratory Last Values WBC 8.1 K/mm3 (4.5-11.0) 08/05/19 13:27 RBC 4.66 M/mm3 (3.65-5.03) 08/05/19 13:27 Hgb 14.5 gm/dl (10.1-14.3) H 08/05/19 13:27 Hct 43.4 % (30.3-42.9) H 08/05/19 13:27 MCV 93 fl (79-97) 08/05/19 13:27 MCH 31 pg (28-32) 08/05/19 13:27 MCHC 33 % (30-34) 08/05/19 13:27 RDW 13.9 % (13.2-15.2) 08/05/19 13:27 Plt Count 241 K/mm3 (140-440) 08/05/19 13:27 Lymph % (Auto) 17.4 % (13.4-35.0) 08/03/19 12:05 [place] % (Auto) 3.6 % (0.0-7.3) 08/03/19 12:05 Eos % (Auto) 0.2 % (0.0-4.3) 08/03/19 12:05 Baso % (Auto) 2.0 % (0.0-1.8) H 08/03/19 12:05 Lymph # 2.2 K/mm3 (1.2-5.4) 08/03/19 12:05 [place] # 0.4 K/mm3 (0.0-0.8) 08/03/19 12:05 Eos # 0.0 K/mm3 (0.0-0.4) 08/03/19 12:05 Baso # 0.3 K/mm3 (0.0-0.1) H 08/03/19 12:05 Seg Neutrophils % 76.8 % (40.0-70.0) H 08/03/19 12:05 Seg Neutrophils # 9.5 K/mm3 (1.8-7.7) H 08/03/19 12:05 PT 13.5 Sec. (12.2-14.9) 08/03/19 12:05 INR 1.02 (0.87-1.13) 08/03/19 12:05 APTT 29.7 Sec. (24.2-36.6) 08/03/19 12:05 Thrombin Time 18.0 Sec. (15.1-19.6) 08/03/19 12:05 Sodium 141 mmol/L (137-145) 08/05/19 13:27 Potassium 4.1 mmol/L (3.6-5.0) 08/05/19 13:27 Chloride 106.0 mmol/L (98-107) 08/05/19 13:27 Carbon Dioxide 23 mmol/L (22-30) 08/05/19 13:27 Anion Gap 16 mmol/L 08/05/19 13:27 BUN 9 mg/dL (7-17) 08/05/19 13:27 Creatinine 0.7 mg/dL (0.7-1.2) 08/05/19 13:27 Estimated GFR > 60 ml/min 08/05/19 13:27 BUN/Creatinine Ratio 13 % 08/05/19 13:27 Glucose 93 mg/dL (65-100) 08/05/19 13:27 POC Glucose 85 (70-105) 08/03/19 11:50 Calcium 9.6 mg/dL (8.4-10.2) 08/05/19 13:27 Magnesium 1.90 mg/dL (1.7-2.3) 08/05/19 13:27 Troponin T < 0.010 ng/mL (0.00-0.029) 08/03/19 12:05 Triglycerides 116 mg/dL (2-149) 08/04/19 05:27 Cholesterol 157 mg/dL (50-199) 08/04/19 05:27 LDL Cholesterol Direct 86 mg/dL (50-130) 08/04/19 05:27 HDL Cholesterol 63 mg/dL (40-59) H 08/04/19 05:27 Cholesterol/HDL Ratio 2.49 % 08/04/19 05:27 Active Medications - Current Medications Current Medications: Generic Name Dose Route Start Last Admin Trade Name Freq PRN Reason Stop Dose Admin Acetaminophen 650 mg 08/03/19 13:42 Tylenol PO Q4H PRN Pain, Mild (1-3) Aspirin 81 mg 08/08/19 10:00 08/08/19 09:58 Baby Aspirin PO 81 mg QDAY NAIN Administration Atorvastatin Calcium 40 mg 08/03/19 22:00 08/07/19 22:04 Lipitor PO Not Given QHS NAIN Bisacodyl 10 mg 08/03/19 13:42 Dulcolax MT QDAY PRN Constipation Doxazosin Mesylate 2 mg 08/06/19 22:00 08/07/19 22:02 Cardura PO 2 mg QHS NANI Administration Enoxaparin Sodium 40 mg 08/05/19 22:00 08/07/19 22:02 Enoxaparin SUB-Q 40 mg QDAY@2200 NAIN Administration Hydralazine HCl 10 mg 08/03/19 13:49 08/05/19 20:37 Apresoline IV 10 mg Q6HR PRN Administration Hypertension Losartan Potassium 100 mg 08/06/19 17:25 08/08/19 09:57 Cozaar PO 100 mg QDAY NAIN Administration Magnesium Hydroxide 30 ml 08/03/19 13:42 Milk Of Magnesia PO Q4H PRN Constipation Metoclopramide HCl 10 mg 08/03/19 13:42 Reglan PO Q6H PRN Nausea And Vomiting Metoprolol Tartrate 100 mg 08/04/19 11:00 08/08/19 09:57 Metoprolol PO 100 mg BID NAIN Administration Nifedipine 30 mg 08/07/19 10:00 08/08/19 09:57 Procardia Xl PO 30 mg QDAY NAIN Administration Ondansetron HCl 4 mg 08/03/19 13:42 Zofran IV Q8H PRN Nausea And Vomiting Promethazine HCl 25 mg 08/03/19 13:42 Phenergan MT Q6H PRN Nausea And Vomiting Sodium Chloride 10 ml 08/03/19 13:42 08/07/19 10:11 Sodium Chloride Flush Syringe 10 Ml IV 10 ml PRN PRN Administration LINE FLUSH
[2019-08-08] MEDS: DOXAZOSIN 1 MG TAB PO SCH (21:51)
[2019-08-08] MEDS: ENOXAPARIN 40 MG/0.4 ML INJ SUB-Q SCH (21:53)
[2019-08-09 05:20] VITALS: BP 131/79
[2019-08-09] MEDS: NIFEdipine XL 30 MG TAB PO SCH (09:59)
[2019-08-09] MEDS: METOPROLOL TARTRATE 100 MG TAB PO SCH (09:59)
[2019-08-09] MEDS: ASPIRIN 81 MG TAB CHEW PO SCH (09:59)
[2019-08-09] MEDS: LOSARTAN 50 MG TAB PO SCH (09:59)
--- NOTE | 2019-08-09 12:46 | Cat Scan Report ---
CT head/brain wo con INDICATION / CLINICAL INFORMATION: 59 years Female; f/u [hemorrhagic component ]. TECHNIQUE: Thin cut axial images obtained to the brain. Sagittal and coronal reconstructions performed by the chnologist. All CT scans at this location are performed using CT dose reduction for ALARA by means of automated exposure control. COMPARISON: CT - 08/07/2019; MRI - 08/04/2019 FINDINGS: Area of hemorrhage in the left middle/inferior frontal gyral region is continuing to undergoing hossein l evolutionary changes. No signs of acute hemorrhage. Minimal surrounding vasogenic edema noted. Otherwise, there is no midline shift or mass effect. No signs of hydrocephalus or large territorial i nfarct. IMPRESSION: 1. Hemorrhagic region in the left frontal lobe is undergoing normal evolutionary change when compared with prior. No detrimental change appreciated. 2. Otherwise, no focal mass, acute hemorrhage, hydrocephalus, or acute, large infarct seen. Signer Name: Param Fox MD, III Signed: 08/09/2019 12:42 PM Workstation Name: [id number]
--- NOTE | 2019-08-09 14:49 | Discharge Summary ---
Providers - Providers Date of Admission: 08/03/19 13:42 Date of discharge: 08/09/19 Attending physician: CORNELL FAIRCHILD 08/03/19 13:42 Consult to Case Management [CONS] Routine Services Needed at Discharge: Other Notified:: Camryn Azevedo Phone number called:: in person Was contact made?: Yes If yes, spoke with:: Camryn Azevedo Time called:: 08:49 Additional Physician Instructions: D/C planning Occupational Therapy Evaluate and Treat [CONS] Routine Comment: Reason For Exam: Neuro deficits Physical Therapy Evaluation and Treat [CONS] Routine Comment: Reason For Exam: Neuro deficits Speech Therapy Evaluation and Treat [CONS] Routine Reason For Exam: swallow eval 08/03/19 13:51 Consult to Physician [CONS] Routine Comment: Consulting Provider: PRINCE MURILLO Physician Instructions: Reason For Exam: cva Primary care physician: PATTERNMAKER APPRENTICE WOOD Hospitalization Reason for admission: Confusion and dysarthria/acute CVA Condition: Stable Pertinent studies: CT Head MRI brain repeat CT head showed hemorrhagic evolution but likely unchange from MRI < 50% stenosis in carotid doppler, echo with preserved EF w/o thrombus, Hospital course: 59 YO Female with HTN, LDD, Atrial Fib not currently taking Therapeutic was admitted through emergency room with history of confusion and dysarthria at time of evaluation and is unable to provide detailed history. Pt history provided by son who is at bedside during exam and interview. As per son, the patient was in her usual state of health around bedtime at 2130hrs hrs. Pt son reports talking to the patient on the telephone around 0800hrs and the patient was confused and "Not making any sense". Pt was subsequently transported to [facility] via private vehicle. Pt seen and evaluated in ED and found to have neurologic deficit. A code stroke was called. Teleneurology consulted. Pt deemed not a candidate for TPA. Pt was also found to have Atrial Fib with RVR and was initiated on Cardizem drip in ED. Pt also found to have Acidosis, and Hypertensive Urgency. Pt admitted to [facility] for medical stabilization. Patient had extensive neuro work-up, CT head and MRI brain showed hemorrhagic evaluation, evaluated by neurologist as well as software computer specialist Medications optimized, neurology recommend to start anticoagulation for A. fib with Eliquis starting from 08/16/2019 to prevent hemorrhagic conversion Of the infarct. Patient had a repeat CT scan today show hemorrhagic region showing normal evolutionary change with improvement. Patient feels better no new complaints, vital signs reviewed Physical examination unremarkable Stable at discharge Strongly advised to see primary care physician and private neurologist in 3 to 4 days time And start Eliquis from 08/16/2019 as recommended by the neurologist If she has any questions or concerns advised to check with primary care physician and private neurologist for further instructions Patient verbalized understanding. 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 Placed on CVA Protocol: Neurology evaluated, + infract on CT Head and MRI brain repeat CT head showed hemorrhagic evolution but likely unchange from MRI On antiplatelet and statin therapy, < 50% stenosis in carotid doppler, echo with preserved EF w/o thrombus, Neurology recommended to start anticoagulation with Eliquis from 08/16/2019 -- Atrial fibrillation with RVR s/p Cardizem drip, rate controlled on home dose BB, AC per neuro recommendation to start from 08/16/19 will cont aspirin for now, 2d with preserved EF -- Hypertensive urgency, malignant cont metoprolol, nifedipine, cardura and cozaar --DVT prophylaxis SCD to BLE while in bed, supportive care. Stable at discharge Disposition: DC-01 TO HOME OR SELFCARE Time spent for discharge: 32 min Core Measure Documentation - Palliative Care Palliative Care/ Comfort Measures: Not Applicable - Core Measures Any of the following diagnoses?: stroke - Stroke Discharge Requirements Statin for LDL = or >70 mg/dl on DC: Yes Anticoag for atrial fib/atrial flutter: Yes Antithrombotic for ischemic stroke: Yes Exam - Constitutional Vitals: Temp Pulse Resp BP Pulse Ox 98.0 F 79 20 131/79 97 08/09/19 04:40 08/09/19 10:00 08/09/19 04:40 08/09/19 04:40 08/08/19 23:41 General appearance: Present: no acute distress, well-nourished - EENT Eyes: Present: PERRL, EOM intact - Neck Neck: Present: supple, normal ROM - Respiratory Respiratory effort: normal Respiratory: bilateral: diminished, negative: rales, rhonchi, wheezing - Cardiovascular Rhythm: regular Heart Sounds: Present: S1 & S2 - Extremities Extremities: no ischemia, No edema - Abdominal General gastrointestinal: Present: soft, non-tender, non-distended, normal bowel sounds - Integumentary Integumentary: Present: clear, warm - Musculoskeletal Musculoskeletal: strength equal bilaterally, generalized weakness - Psychiatric Psychiatric: appropriate mood/affect, cooperative - Neurologic Neurologic: CNII-XII intact, moves all extremities Plan Activity: advance as tolerated, fall precautions Diet: other (cardiac Diet) Additional Instructions: Advised to check with primary care physician 3 to 4 days. Advised to check with her private neurologist in 3 to 4 days. Advised to start anticoagulants[blood thinner] Eliquis 5 mg every 12 hours. Starting from 08/16/2019 and stop aspirin] as recommended by neurologist Follow up with: CHALO MONTANO MD [Staff Physician] - 7 Days PRIMARY CARE, [Primary Care Provider] - 7 Days KARLA MONTEZ MD [Staff Physician] - 7 Days Prescriptions: Doxazosin [Cardura] 2 mg PO QHS #30 tablet Losartan [Cozaar] 100 mg PO QDAY #30 tablet Apixaban [Eliquis] 5 mg PO Q12H #60 tablet Aspirin EC [Halfprin EC] 81 mg PO QDAY #30 tablet. AtorvaSTATin [Lipitor] 40 mg PO QHS #30 tablet Metoprolol Succinate 100 mg PO BID #60 NIFEdipine XL [Procardia Xl] 30 mg PO QDAY #30 tablet
== END 2019-08-09 17:00 | disposition home or self-care (01) | DRG 65 ==
LOC: ED 11:36 → IMCU 13:42 → CC1 18:20 → 4A 08-04 13:01
PROVIDERS: ADMIT Internal Medicine; ATTEND Internal Medicine
DX: I63.9 Cerebral infarction, unspecified (principal); E87.2 Acidosis; I16.0 Hypertensive urgency; I10 Essential (primary) hypertension; I48.0 Paroxysmal atrial fibrillation; R47.01 Aphasia; R29.706 NIHSS score 6; Z82.49 Family history of ischemic heart disease and other diseases of the circulatory system; Z79.899 Other long term (current) drug therapy
CPT/HCPCS: 36415; 70450; 70496; 70498; 70551; 80048; 80061; 82962; 83735; 84484; 85025; 85027; 85610; 85670; 85730; 93005; 93010; 93306; 93880; 96374; G0378; A9270-GY; G0515-GN; J0360; J1650; J7030; J7050; Q9967

== ENCOUNTER 2021-03-25 23:55 | Emergency (ER) | payer MEDICARE ==
[2021-03-26 02:00] LABS: Basophils % (Auto) 0.5 % (0.0-1.8); Eosinophils # (Auto) 0.1 K/mm3 (0.0-0.4); Eosinophils % (Auto) 1.4 % (0.0-4.3); Hematocrit 42.6 % (30.3-42.9); Hemoglobin 14.7 gm/dl (10.1-14.3); Lymphocytes # (Auto) 2.2 K/mm3 (1.2-5.4); Lymphocytes % (Auto) 24.8 % (13.4-35.0); Mean Corpuscular HGB Conc 34 % (30-34); Mean Corpuscular Volume 94 fl (79-97); Monocytes # (Auto) 0.6 K/mm3 (0.0-0.8); Monocytes % (Auto) 6.5 % (0.0-7.3); Platelet Count 230 K/mm3 (140-440); Red Blood Count 4.55 M/mm3 (3.65-5.03); Red Cell Distribution Width 13.9 % (13.2-15.2)
[2021-03-26 02:17] LABS: BUN/Creatinine Ratio 13; Blood Urea Nitrogen 12 mg/dL (7-17); Calcium 9.7 mg/dL (8.4-10.2); Hemolysis Index 13
--- NOTE | 2021-03-26 02:31 | Emergency Department Report ---
ED General Adult HPI - General Chief complaint: High BP Stated complaint: HYPERTENSION Time Seen by Provider: 03/26/21 00:19 Source: patient, EMS Mode of arrival: Stretcher Limitations: No Limitations - History of Present Illness Initial comments: Patient is a 61-year-old F [place] female with a past medical history of atrial fibrillation hypertension who is presenting with elevated blood pressure. Patient states over the last month she has had some high readings with her blood pressure. Only symptoms she ever has some mild blurry vision. States that she was taking her blood pressure today and it had gotten up to 240 systolic. This was very concerning the patient states she has had a history of a mild stroke causing some memory issues. Patient states that she has no chest pain shortness of breath or focal neurological deficits at this time. Patient had taken several Catapres pills which she takes as needed without her blood pressure d ecreasing significantly which prompted her to come to the hospital. - Related Data Previous Rx's Medication Instructions Recorded Last Taken Type Aspirin EC [Halfprin EC] 81 mg PO QDAY #30 tablet. 08/07/19 Unknown Rx AtorvaSTATin [Lipitor] 40 mg PO QHS #30 tablet 08/07/19 Unknown Rx Doxazosin [Cardura] 2 mg PO QHS #30 tablet 08/07/19 Unknown Rx Losartan [Cozaar] 100 mg PO QDAY #30 tablet 08/07/19 Unknown Rx Metoprolol Succinate 100 mg PO BID #60 08/07/19 Unknown Rx NIFEdipine XL [Procardia Xl] 30 mg PO QDAY #30 tablet 08/07/19 Unknown Rx Apixaban [Eliquis] 5 mg PO Q12H #60 tablet 08/09/19 Unknown Rx hydroCHLOROthiazide [HCTZ] 25 mg PO QDAY #30 tablet 03/26/21 Unknown Rx Allergies Allergy/AdvReac Type Severity Reaction Status Date / Time NSAIDS (Non-Steroidal Allergy Unknown Verified 03/26/21 00:20 Anti-Inflamma losartan [From Cozaar] AdvReac Unknown Verified 03/26/21 00:20 ED Review of Systems ROS: Stated complaint: HYPERTENSION Other details as noted in HPI Comment: All other systems reviewed and negative ED Past Medical Hx - Past Medical History Previous Medical History?: Yes Hx Hypertension: Yes Hx Congestive Heart Failure: No Hx Diabetes: No Hx Seizures: No Hx Asthma: No Hx COPD: No Hx Dementia: No Additional medical history: herniated disk. heart murmur. Atrial fibrillation - Surgical History Past Surgical History?: No Hx Pacemaker: No Hx Internal Defibrillator: No - Social History Smoking Status: Never Smoker - Medications Home Medications: Home Medications Medication Instructions Recorded Confirmed Last Taken Type Aspirin EC [Halfprin EC] 81 mg PO QDAY #30 tablet. 08/07/19 Unknown Rx AtorvaSTATin [Lipitor] 40 mg PO QHS #30 tablet 08/07/19 Unknown Rx Doxazosin [Cardura] 2 mg PO QHS #30 tablet 08/07/19 Unknown Rx Losartan [Cozaar] 100 mg PO QDAY #30 tablet 08/07/19 Unknown Rx Metoprolol Succinate 100 mg PO BID #60 08/07/19 Unknown Rx NIFEdipine XL [Procardia Xl] 30 mg PO QDAY #30 tablet 08/07/19 Unknown Rx Apixaban [Eliquis] 5 mg PO Q12H #60 tablet 08/09/19 Unknown Rx hydroCHLOROthiazide [HCTZ] 25 mg PO QDAY #30 tablet 03/26/21 Unknown Rx ED Physical Exam - General Limitations: No Limitations General appearance: alert, in no apparent distress - Head Head exam: Present: atraumatic, normocephalic - Eye Eye exam: Present: normal appearance - ENT ENT exam: Present: mucous membranes moist - Neck Neck exam: Present: normal inspection - Respiratory Respiratory exam: Present: normal lung sounds bilaterally. Absent: respiratory distress, wheezes, rales, rhonchi - Cardiovascular Cardiovascular Exam: Present: regular rate, normal rhythm, normal heart sounds. Absent: systolic murmur, diastolic murmur, rubs, gallop - GI/Abdominal GI/Abdominal exam: Present: soft, normal bowel sounds. Absent: distended, tenderness, guarding, rebound - Extremities Exam Extremities exam: Present: normal inspection - Back Exam Back exam: Present: normal inspection - Neurological Exam Neurological exam: Present: alert, oriented X3 - Psychiatric Psychiatric exam: Present: normal affect, normal mood - Skin Skin exam: Present: warm, dry, intact, normal color. Absent: rash ED Course Vital Signs 03/26/21 03/26/21 03/26/21 00:14 00:15 00:20 Temperature 98.0 F Pulse Rate 88 91 H 88 Respiratory 18 18 15 Rate Blood Pressure 201/101 O2 Sat by Pulse 96 97 98 Oximetry 03/26/21 03/26/21 03/26/21 00:30 00:50 01:00 Temperature Pulse Rate 94 H Respiratory 21 Rate Blood Pressure 213/96 188/126 194/119 O2 Sat by Pulse 96 98 97 Oximetry 03/26/21 01:16 Temperature Pulse Rate Respiratory Rate Blood Pressure 162/93 O2 Sat by Pulse 98 Oximetry ED Medical Decision Making - Lab Data Result diagrams: 03/26/21 00:30 03/26/21 00:30 - Medical Decision Making Patient's blood pressure improved to some degree likely from the Catapres that she is taken prior to arrival. Given 10 of labetalol. Final blood pressure was 145 systolic. Patient be discharged home. We will add hydrochlorothiazide to her regimen. Critical care attestation.: If time is entered above; I have spent that time in minutes in the direct care of this critically ill patient, excluding procedure time. ED Disposition Clinical Impression: Hypertensive urgency Disposition: DC-01 TO HOME OR SELFCARE Is pt being admited?: No Does the pt Need Aspirin: No Condition: Stable Instructions: Preventing Hypertension, Hypertension, Adult, Ivcm-oe-Oxae Prescriptions: hydroCHLOROthiazide [HCTZ] 25 mg PO QDAY #30 tablet Referrals: PRIMARY CARE, [Primary Care Provider] - 3-5 Days Time of Disposition: 02:33
[2021-03-26 02:44] VITALS: BP 148/95
== END 2021-03-26 03:00 | disposition home or self-care (01) ==
LOC: ED 23:55
DX: I16.0 Hypertensive urgency (principal); I10 Essential (primary) hypertension; Z79.899 Other long term (current) drug therapy; Z79.82 Long term (current) use of aspirin
CPT/HCPCS: 36415; 80048; 85025; 96374; 99284